=== PATIENT | female | born 1950 | race Caucasian/White ===

== ENCOUNTER 2020-01-21 14:20 | Outpatient (CLI) | payer MEDICARE, SELFPAY ==
--- NOTE | ~2020-01-21 | MM_ITS ---
EXAMINATION: MM screening mehreen BI w landon HISTORY: Screening mammogram TECHNIQUE: Craniocaudal and mediolateral oblique 3-D tomosynthesis images were obtained and synthetic 2-D images were generated. CAD analysis was submitted and interpreted. COMPARISON: 12/26/2018, 08/21/2017, 04/08/2015 bilateral digital screening mammogram examinations BREAST PARENCHYMAL COMPOSITION: There are scattered areas of fibroglandular density. FINDINGS: Focal asymmetry is noted in the outer right breast on CC projection. Diagnostic right mammo gram is recommended, with ultrasound if required. Otherwise there is no evidence of suspicious mass, calcification, or architectural distortion to sugg est malignancy in either breast. There has been no suspicious interval change. IMPRESSION: 1. Focal asymmetry in the outer right breast on craniocaudal view 2. Diagnostic right mammogram is recommended, with ultrasound if required BI-RADS Category 0: Incomplete: Needs additional imaging evaluation. Reviewed, dictated and finalized at location A.
== END 2020-01-21 14:21 | disposition home or self-care (01) ==
LOC: ANHIMG 14:28
PROVIDERS: PCP Internal Medicine; Visit Provider Internal Medicine
DX: Z12.31 Encounter for screening mammogram for malignant neoplasm of breast (principal); R92.8 Other abnormal and inconclusive findings on diagnostic imaging of breast
CPT/HCPCS: 77063; 77067

== ENCOUNTER 2020-03-02 12:09 | Outpatient (CLI) | payer MEDICARE, SELFPAY ==
--- NOTE | ~2020-03-02 | MMUS_ITS ---
EXAMINATION: MM diagnostic mammo unilat RT, US breast RT limited HISTORY: Follow-up right breast asymmetry TECHNIQUE: Additional 3-D tomosynthesis images of the right breast were performed and synthetic 2-D i mages were generated. CAD analysis was submitted and interpreted. High resolution right breast ultras ound was performed. COMPARISON: Comparison to multiple prior studies sequentially, with oldest reviewed study dated 08/21. BREAST PARENCHYMAL COMPOSITION: Breast composed of scattered areas of fibroglandular density. FINDINGS: MAMMOGRAPHIC FINDINGS: There are no suspicious masses, calcifications or architectural distortion in the right breast to sug gest malignancy. ULTRASOUND: Right breast ultrasound: Mildly prominent ducts. No suspicious masses or fluid collections are identified. IMPRESSION: 1. No evidence for malignancy in the right breast. 2. Routine yearly screening mammogram and regular clinical breast examination are recommended. BI-RADS Category 1: Negative Reviewed, dictated and finalized at location A. AND [employer] WORKER IMPRESSION: 1. No evidence for malignancy in the right breast. 2. Routine yearly screening mammogram and regular clinical breast examination a re recommended. BI-RADS Category 1: Negative
== END 2020-03-02 12:10 | disposition home or self-care (01) ==
LOC: ANHIMG 12:18
PROVIDERS: PCP Internal Medicine; Visit Provider Internal Medicine
DX: R92.8 Other abnormal and inconclusive findings on diagnostic imaging of breast (principal)
CPT/HCPCS: 76642; 77065

== ENCOUNTER → 2020-09-14 01:07 | Outpatient (CLI) | payer MEDICARE, SELFPAY ==
[2020-09-14 18:48] LABS: SARS-CoV-2 RNA PCR Negative
== END ==
PROVIDERS: PCP Internal Medicine; Visit Provider Internal Medicine Gastroenterology
DX: Z01.812 Encounter for preprocedural laboratory examination (principal); Z20.822 Contact with and (suspected) exposure to COVID-19
CPT/HCPCS: C9803; U0003; U0005

== ENCOUNTER 2020-09-17 01:55 | Day surgery (SDC) | payer MEDICARE, SELFPAY ==
[2020-09-08 13:56] VITALS: BMI 32.9
[2020-09-17 09:07] VITALS: BP 136/76; PULSE 72; RESP 18; TEMP 36.6; O2SAT 98; BMI 32.8
[2020-09-17] MEDS: LACTATED RINGERS 1,000 ML 150 ML IV CONT (09:17)
--- NOTE | 2020-09-17 09:44 | WPDGICN ---
GI Consult Note Consult date/time: 09/17/20 09:44 HPI: Reason for visit is colonoscopy. This very pleasant lady seen in consultation at the request of the primary physician. Impression: Screening and surveillance colonoscopy. The patient has a history adenomatous colon polyps. HTN. COPD. Tobacco abuse. Recommendation: Colonoscopy. History: This very pleasant lady has a negative GI review systems. She is here for screening and surveillance colonoscopy. She has a history adenomatous colon polyps. Recently the patient did have a virus with nausea, vomiting diarrhea. This was self-limited. The patient does have a history of COPD. She has occasional shortness of breath, dyspnea exertion and wheezing. Physical examination: General: very pleasant patient in no acute distress. HEENT: Head was normocephalic sclerae is clear mouth without masses neck was supple. Heart: Rate rhythm regular without S3 or S4. Lungs: Decreased breath sounds bilaterally with expiratory wheezes. Abdomen: Soft with no guarding or rigidity. Bowel sounds were active. Neurologic: Cranial nerves 2 through 12 intact. No focal defects. No clonus. Musculoskeletal system: Revealed no joint tenderness or swelling no muscle atrophy. Extremities: Reveal no significant edema. Skin: Warm and dry with normal turgor. Mental status: intact. Patient is alert and oriented. Review of Systems Review of Systems: All systems reviewed & are unremarkable except as noted in HPI and below PMFSH Past Medical History Medical History (Updated 09/17/20 @ 09:43 by Addy Cervantes DO) Adenomatous colon polyp COPD (chronic obstructive pulmonary disease) HTN (hypertension) Tobacco abuse Surgical History Surgical History (Updated 09/17/20 @ 09:36 by Addy Cervantes DO) H/O colonoscopy Social History Social History Smoking packs per day: 0.5 Smoking cigarettes per day: 10.0 Smoking status: Current every day smoker Tobacco type: cigarettes Alcohol use details: SOCIALLY Living arrangements: with friend(s) Spiritual care concerns: No Meds Home Medications and Allergies Home Medications Medication Instructions Recorded Confirmed Type albuterol 90 mcg INHALATION Q4-6H PRN 09/08/20 09/08/20 History amlodipine 5 mg PO DAILY 09/08/20 09/08/20 History budesonide-formoterol [Symbicort] 2 puff INHALATION BID 09/08/20 09/08/20 History cetirizine 10 mg PO DAILY PRN 09/08/20 09/08/20 History Allergies Allergy/AdvReac Type Severity Reaction Status Date / Time No Known Allergies Allergy Verified 09/17/20 09:07 Vital Signs Vital Signs - 24 hr 09/17/20 09:07 Temperature 36.6 C Pulse Rate 72 Respiratory Rate 18 Blood Pressure 136/76 Pulse Oximetry 98
--- NOTE | 2020-09-17 10:34 | WPDANESEPPF ---
Anes - Initial Pre Proc Eval Procedure: Operation Date: 09/17/20 10:00 Proposed Procedures p Screening Colonoscopy - Addy Cervantes DO Date/Time: 09/17/20 10:34 Surgeon: Addy Cervantes DO Pre Op Diagnosis: neoplasm screening, hx colon polyps Patient Data Age: 70 Gender: F Height: 5 ft 4 in Weight: 86.8 kg Last Vital Signs Temp 97.8 F 09/17/20 09:07 Pulse 72 09/17/20 09:07 Resp 18 09/17/20 09:07 BP 136/76 09/17/20 09:07 Pulse Ox 98 09/17/20 09:07 Allergies Allergy/AdvReac Type Severity Reaction Status Date / Time No Known Allergies Allergy Verified 09/17/20 09:07 Home Medications Medication Instructions Recorded Confirmed Type albuterol 90 mcg INHALATION Q4-6H PRN 09/08/20 09/08/20 History amlodipine 5 mg PO DAILY 09/08/20 09/08/20 History budesonide-formoterol [Symbicort] 2 puff INHALATION BID 09/08/20 09/08/20 History cetirizine 10 mg PO DAILY PRN 09/08/20 09/08/20 History Patient hx anesthesia problems: none Family hx anesthesia problems: none [facility] Past Medical History Medical History (Updated 09/17/20 @ 09:43 by Addy Cervantes DO) Adenomatous colon polyp COPD (chronic obstructive pulmonary disease) HTN (hypertension) Tobacco abuse Surgical History Surgical History (Updated 09/17/20 @ 09:36 by Addy Cervantes DO) H/O colonoscopy Social History Social History Smoking packs per day: 0.5 Smoking cigarettes per day: 10.0 Smoking status: Current every day smoker Tobacco type: cigarettes Alcohol use details: SOCIALLY Living arrangements: with friend(s) Spiritual care concerns: No Anes - Eval Final PreProcedure Day of Procedure 09/17/20 10:34 Patient weight: obese Heart: regular rate and rhythm Lungs: clear to auscultation Airway: Mallampati scale class II Neurological: alert and oriented Last oral intake: >/= 8 hours ASA classification: III Emergent: no Anesthetic plan: proceed Anesthesia type and monitoring: general GIVS and standard monitoring Informed Consent: The patient's anesthetic plan and its attendant risks and benefits were discussed with the patient/family/POA. Questions were solicited and answers provided to the satisfaction of the patient/family/POA.
[2020-09-17 11:38] VITALS: BP 116/44; PULSE 73; RESP 20; O2SAT 96
[2020-09-17 11:48] VITALS: BP 147/92; PULSE 73; RESP 19; O2SAT 97
[2020-09-17 11:58] VITALS: BP 130/80; PULSE 76; RESP 19; O2SAT 98
== END 2020-09-17 12:20 | disposition home or self-care (01) ==
PROVIDERS: PCP Internal Medicine; Visit Provider Internal Medicine Gastroenterology
PROC: 0DJD8ZZ Inspection of Lower Intestinal Tract, Via Natural or Artificial Opening Endoscopic (ICD-10-PCS; CPT 45378; principal; 2020-09-17 10:00)
DX: Z12.11 Encounter for screening for malignant neoplasm of colon (principal); K57.30 Diverticulosis of large intestine without perforation or abscess without bleeding; K64.8 Other hemorrhoids; Z86.010 Personal history of colon polyps; I10 Essential (primary) hypertension; J44.9 Chronic obstructive pulmonary disease, unspecified; F17.210 Nicotine dependence, cigarettes, uncomplicated; Z79.51 Long term (current) use of inhaled steroids; E66.9 Obesity, unspecified; Z68.32 Body mass index [BMI] 32.0-32.9, adult
CPT/HCPCS: G0105; C9803; J2704; J7120; U0003; U0005

== ENCOUNTER 2020-09-28 18:22 | Emergency (ER) | payer MEDICARE, SELFPAY ==
--- NOTE | ~2020-09-28 | XR_ITS ---
XR wrist RT 2V 09/28/2020 20:42 Indication: Post reduction film of the right wrist Procedure: 2 views right wrist Comparison: 09/28/2020 Findings: There is a transverse distal radial metaphyseal fracture in anatomic alignment post reducti on. There is an ulnar styloid avulsion fracture. Moderate soft tissue swelling. Polyarticular osteoar thritis. Osteopenia. Impression: 1: Anatomic alignment of distal radial metaphyseal fracture post reduction. 2: Ulnar styloid avulsion fracture. Reviewed, dictated and finalized at location A. Impression: 1: Anatomic alignment of distal radial metaphyseal fracture post reduction. 2: Ulnar styloid avulsion fracture.
--- NOTE | ~2020-09-28 | XR_ITS ---
XR wrist RT 2V 09/28/2020 18:49 Indication: Right wrist pain Procedure: 2 views right wrist Comparison: No prior studies for comparison. Findings: There is a distal radial metaphyseal fracture with approximately one bone width ventral dis placement and 30 degrees volar angulation. There is a displaced ulnar styloid fracture. There is a la rge amount of soft tissue swelling. Generalized osteopenia. There is polyarticular osteoarthritis. No foreign bodies. Impression: 1: Displaced, angulated distal radial metaphyseal fracture. 2: Displaced ulnar styloid fracture Reviewed, dictated and finalized at location A. Impression: 1: Displaced, angulated distal radial metaphyseal fracture. 2: Displaced ulnar styloid fracture
[2020-09-28 18:37] VITALS: BP 168/87; PULSE 100; RESP 18; TEMP 36.9; O2SAT 96
[2020-09-28] MEDS: HYDROmorphone HCL INJ (*CRX) 1 MG/ML SYR IV PUSH (20:30)
--- NOTE | 2020-09-28 20:47 | ED.UPPEXIN ---
HPI - Extremity Injury (Upper) General Chief Complaint: Extremity Injury, Upper Stated Complaint: FALL, WRIST INJURY Time Seen by Provider: 09/28/20 19:26 History of Present Illness HPI narrative: Patient is a 70-year-old female who presents ER with right wrist injury. She was riding her horse when during a turn she fell off onto outstretched hand. It was her right arm. She had sudden onset pain and deformity. She was splinted with a magazine and then rode her horse 4 miles back to her car and drove to the hospital. She did not strike her head or lose consciousness. She has no numbness or tingling in her extremity. Related Data Home Medications Medication Instructions Recorded Confirmed albuterol 90 mcg INHALATION Q4-6H PRN 09/08/20 09/08/20 amlodipine 5 mg PO DAILY 09/08/20 09/08/20 budesonide-formoterol [Symbicort] 2 puff INHALATION BID 09/08/20 09/08/20 cetirizine 10 mg PO DAILY PRN 09/08/20 09/08/20 Allergies Allergy/AdvReac Type Severity Reaction Status Date / Time No Known Allergies Allergy Verified 09/28/20 20:57 Review of Systems Review of Systems: All systems reviewed & are unremarkable except as noted in HPI and below Cardiovascular: Cardiovascular: Denies chest pain and Denies radiating jaw, neck or arm pain Respiratory: Respiratory: Denies cough and Denies dyspnea Gastrointestinal: Gastrointestinal: Denies abdominal pain, Denies nausea and Denies vomiting Musculoskeletal: Musculoskeletal: Reports arthralgias and Reports joint swelling PMFSH Past Medical History Medical History (Updated 09/28/20 @ 21:15 by Robert Burnett MD) Adenomatous colon polyp COPD (chronic obstructive pulmonary disease) HTN (hypertension) Tobacco abuse Surgical History Surgical History (Updated 09/17/20 @ 09:36 by Addy Cervantes DO) H/O colonoscopy Social History Social History Smoking packs per day: 0.5 Smoking cigarettes per day: 10.0 Smoking status: Current every day smoker Tobacco type: cigarettes Gender identity (if verbalized by the patient): Female Spiritual care concerns: No Exam Narrative: Exam Narrative: GENERAL: Well-appearing, well-nourished, and in no acute distress. HEAD: Normocephalic, atraumatic. CHEST: Clear to auscultation. No respiratory distress. HEART: Regular rate and rhythm. Normal peripheral pulses. ABDOMEN: Soft, nontender, nondistended. EXTREMITIES: Focused exam of the right upper extremity reveals deformity at the wrist. Normal range of motion with brisk capillary refill normal normal sensation distal to the injury. No tenderness at the elbow and has full range of motion. No other extremity injury in the left upper or bilateral lower extremities. SKIN: Warm, dry, no rash. Abrasion on the dorsal aspect of the distal forearm. This is not an open fracture. NEURO: Alert and oriented x3. PSYCH: Normal mood and affect. Course Course Emergency Course: Forearm cleaned. Topical antibiotic applied. Wrist reduced. Discussed with orthopedic surgery who will follow patient up this week in clinic. Patient was placed in a sling. Vital Signs Vital signs: Vital Signs Temperature 98.4 F 09/28/20 18:37 Pulse Rate 100 09/28/20 18:37 Respiratory Rate 18 09/28/20 18:37 Blood Pressure 168/87 H 09/28/20 18:37 Pulse Oximetry 96 09/28/20 18:37 Temperature 98.4 F 09/28/20 18:37 Pulse Rate 100 09/28/20 18:37 Respiratory Rate 18 09/28/20 18:37 Blood Pressure 168/87 H 09/28/20 18:37 Pulse Oximetry 96 09/28/20 18:37 Procedures Orthopedic Fracture Reduction Fracture #1: Fracture Reduction date: 09/28/20 Fracture Reduction time: 20:35 Time Out Performed: Yes Side: right Fracture Reduction Location: radius Analgesia: other (dilaudid 1mg iv) Pre-Procedure Neuro Vascular Exam: normal Technique: direct manipulation Post Reduction X-rays Demonstrate: anatomical reduction Post-reduction neuro exam: i
[2020-09-28] MEDS: TETANUS,DIPHTHERIA,AC PERTUSSIS ADULT (0.5 ML) BOOSTRIX IM (21:31)
== END 2020-09-28 21:44 | disposition home or self-care (01) ==
PROVIDERS: Emergency Provider Emergency Medicine; PCP Internal Medicine
DX: S59.291A Other physeal fracture of lower end of radius, right arm, initial encounter for closed fracture (principal); S52.611A Displaced fracture of right ulna styloid process, initial encounter for closed fracture; Z23 Encounter for immunization; J44.9 Chronic obstructive pulmonary disease, unspecified; I10 Essential (primary) hypertension; Z86.010 Personal history of colon polyps; F17.210 Nicotine dependence, cigarettes, uncomplicated; V80.010A Animal-rider injured by fall from or being thrown from horse in noncollision accident, initial encounter
CPT/HCPCS: 25605; 73100; 90471; 90714; 90715; 96374; 99285; A4565; J1170

== ENCOUNTER → 2020-10-06 10:14 | Outpatient (CLI) | payer MEDICARE, SELFPAY ==
[2020-10-08 00:05] LABS: SARS-CoV-2 RNA PCR Negative
== END ==
PROVIDERS: PCP Internal Medicine; Visit Provider Orthopaedic Surgery
DX: Z01.812 Encounter for preprocedural laboratory examination (principal); Z20.822 Contact with and (suspected) exposure to COVID-19
CPT/HCPCS: C9803; U0003; U0005

== ENCOUNTER 2020-10-07 08:27 | Outpatient (CLI) | payer MEDICARE, SELFPAY ==
--- NOTE | 2020-10-07 08:41 | ECG_ITS ---
Measurements Intervals [place] Rate: 78 P: 78 MN: 152 QRS: 31 QRSD: 91 T: 53 QT: 345 QTc: 394 Interpretive Statements SINUS RHYTHM DELAYED PRECORDIAL R/S TRANSITION BASELINE ARTIFACT- III, AVR, AVL, AVF BORDERLINE ECG Electronically Signed On 10-07-2020 9:11:53 CDT by Singh Cueva D.O.
== END 2020-10-07 08:28 | disposition home or self-care (01) ==
PROVIDERS: PCP Internal Medicine; Visit Provider Orthopaedic Surgery
DX: I10 Essential (primary) hypertension (principal); Z01.818 Encounter for other preprocedural examination; R94.31 Abnormal electrocardiogram [ECG] [EKG]
CPT/HCPCS: 93005

== ENCOUNTER 2020-10-08 02:53 | Day surgery (SDC) | payer MEDICARE, SELFPAY ==
[2020-10-06 15:02] VITALS: BMI 32.7
--- NOTE | 2020-10-07 09:23 | WPDANESEPPF ---
Anes - Initial Pre Proc Eval Procedure: Operation Date: 10/08/20 12:30 Proposed Procedures p Open Reduction Internal Fixation Right Distal Radius Fracture - Micha Mejia MD Date/Time: 10/07/20 09:23 Surgeon: Micha Mejia MD Pre Op Diagnosis: right distal radius fracture Patient Data Age: 70 Gender: F Height: 1.63 m Weight: 86.4 kg Allergies Allergy/AdvReac Type Severity Reaction Status Date / Time No Known Allergies Allergy Verified 10/06/20 15:01 Home Medications Medication Instructions Recorded Confirmed Type albuterol 90 mcg INHALATION Q4-6H PRN 09/08/20 10/06/20 History amlodipine 5 mg PO DAILY 09/08/20 10/06/20 History budesonide-formoterol [Symbicort] 2 puff INHALATION BID 09/08/20 10/06/20 History hydrocodone-acetaminophen 1 tablet PO Q6H PRN #20 tablet 09/28/20 10/06/20 Rx tramadol 50 mg tablet 50 mg PO Q6H PRN 10/06/20 10/06/20 History ECG: Date of Service: 10/07/20 Procedure(s): CA 12 lead EKG Accession Number(s): [id number] cc: ~ Measurements Intervals [place] Rate: 78 P: 78 TN: 152 QRS: 31 QRSD: 91 T: 53 QT: 345 QTc: 394 Interpretive Statements SINUS RHYTHM DELAYED PRECORDIAL R/S TRANSITION BASELINE ARTIFACT- III, AVR, AVL, AVF BORDERLINE ECG Electronically Signed On 10-07-2020 9:11:53 CDT by Singh Cueva D.O. Patient hx anesthesia problems: none Family hx anesthesia problems: none [facility] Past Medical History Medical History (Updated 10/07/20 @ 09:24 by Santana Peterson MD) Adenomatous colon polyp Asthma COPD (chronic obstructive pulmonary disease) HTN (hypertension) Tobacco abuse Surgical History Surgical History H/O colonoscopy History of ankle surgery 1999 Social History Social History Smoking packs per day: 0.5 Smoking cigarettes per day: 10.0 Smoking status: Current every day smoker Tobacco type: cigarettes Second hand tobacco smoke exposure: Yes Additional smoking assessment comments: STATES SMOKED OFF AND ON SINCE HIGH SCHOOL Alcohol intake: current Drinks per week: 2 Substance use: never Substance use type: does not use Living arrangements: with friend(s) Gender identity (if verbalized by the patient): Female Spiritual care concerns: No Anes - Eval Final PreProcedure Day of Procedure 10/07/20 09:23 Patient weight: obese Heart: regular rate and rhythm Lungs: clear to auscultation and normal air movement Airway: Mallampati scale class II Neurological: alert and oriented Last oral intake: >/= 8 hours ASA classification: III Emergent: no Anesthetic plan: proceed Anesthesia type and monitoring: general LMA Informed Consent: The patient's anesthetic plan and its attendant risks and benefits were discussed with the patient/family/POA. Questions were solicited and answers provided to the satisfaction of the patient/family/POA.
[2020-10-08] VITALS (8 sets, daily range): BP systolic 134–173; BP diastolic 61–97; PULSE 71–88; RESP 12–18; TEMP 36.5–36.7; O2SAT 97–99
--- NOTE | ~2020-10-08 | XR_ITS ---
EXAMINATION: XR surgery orthopedic EXAM DATE: 10/08/2020 14:27 INDICATION: Right wrist ORIF. TECHNIQUE: Fluoroscopy used during XR surgery orthopedic performed by Dr. Micha Mejia MD. Radi ologist was not present for the imaging or procedure. Total fluoroscopic time of 22 seconds. The DA P for this procedure was 0.01 mGym2. A total of 3 images sent to PACS from the exam. FINDINGS: Frontal and lateral images demonstrate open reduction internal fixation of the comminuted right radial distal metaphyseal intra-articular fracture, with orthopedic plate, supporting screws. T here is been reduction in previously seen ulnar styloid base avulsion fracture.. Correlate with proc edure note. IMPRESSION: Fluoroscopy used during right distal radial ORIF. Reviewed, dictated and finalized at location A.
[2020-10-08] MEDS: ACETAMINOPHEN 500 MG TABLET 1000 MG PO (11:04)
[2020-10-08] MEDS: KETOROLAC 15 MG/ML VIAL (*BKC) IV PUSH (11:07)
[2020-10-08] MEDS: LACTATED RINGERS 1,000 ML 30 ML IV CONT (11:08)
--- NOTE | 2020-10-08 11:55 | WPDANESPNB ---
Anes - Peripheral Nerve Block Date/Time: 10/08/20 11:55 I have discussed with the patient/family/POA the placement of a peripheral nerve block for post-operative pain management, including associated risks, benefits, complications, and side effects. Alternative methods of post-operative analgesia were detailed. Questions were solicited and answers provided to the satisfaction of the patient/family/POA. Time-Out: A pre-procedural Time-Out was completed immediately before starting the procedure and confirmed: Patient Identification, Site, Procedure, Patient Position and the Availability of Requisite Equipment. Clinical Indications: Acute post-operative pain management requested by the operative surgeon. Nerve Block Insertion Note Needle: 22 gauge, stimulating, insulated echogenic needle.
--- NOTE | 2020-10-08 12:04 | WPDHPUPDATE1 ---
History and Physical Update Update Date/Time: 10/08/20 12:04 History and Physical has been reviewed, including an updated exam of the patient. There are NO changes in the patient's condition. Risks, benefits, and alternatives have been discussed and questions answered. Patient agrees to proceed with procedure.
--- NOTE | 2020-10-08 12:51 | SUR.PREOP ---
1200: PT MADE AWARE THAT SURGERY WILL BE DELAYED UNTIL 1300 R/T PREV CASE DELAYS. PT VOICES UNDERSTANDING. DENIES NEEDS.
--- NOTE | 2020-10-08 13:11 | WPDHPUPDATE1 ---
History and Physical Update Update Date/Time: 10/08/20 13:11 History and Physical has been reviewed, including an updated exam of the patient. There are NO changes in the patient's condition. Risks, benefits, and alternatives have been discussed and questions answered. Patient agrees to proceed with procedure.
[2020-10-08] MEDS: ceFAZolin 2 GM/D5W 50 ML 2 GM/50 ML BAG IVPB (13:17)
--- NOTE | 2020-10-08 14:48 | W.PM.PROC2 ---
Procedure Note - Detailed Date of Procedure 10/08/20 Pre-op Diagnosis right distal radius fracture Post-op Diagnosis same Procedure Performed ORIF right distal radius fracture Surgeon Micha Mejia MD Charter Representative [place] Anesthesia general Indications See H&P Description of Procedure The patient was identified and the proper side identified. She was taken back to the operating room, transferred to the or table positioning supine taking care to pad her torso and extremities. After general anesthetic induction and intubation, a nonsterile tourniquet was placed high on the right arm which was prepped and draped in the usual sterile fashion. The extremity was exsanguinated and tourniquet inflated to 250 mmHg remaining up for approximately 46 minutes. A volar longitudinal incision was made along the FCR tendon distally. The subcutaneous tissue was sharply dissected protecting neurovascular structures. The FCR tendon was released from its sheath and retracted ulnarly. This allowed for the deep fascia of the forearm to be divided longitudinally in line with the incision. Care was taken to protect the volar compartment structures as well as the radial nerve and radial vascular structures. The pronator quadratus was elevated off of the distal radius allowing for inspection of the fracture site. The fracture fragments were disimpacted and able to be realigned virtually anatomically with fluoroscopic assistance. They were secured in this position with a narrow, short from the DVR set. The plate was applied with fluoroscopic visualization to avoid penetration of the joint and to ensure optimal hardware placement. Once the plate was secure the overall construct was assessed fluoroscopically on the AP and lateral views. The virtually anatomic reduction was held very nicely. The construct was stable. The wound was irrigated with a copious amount of sterile antibiotic solution. Skin edges were reapproximated with two 0 strata fix and tissue adhesive for the skin. The abraded area which had been dressed prior to prepping with an site, was dressed with Adaptic and gauze. Sterile dressing was applied to the forearm, wrist and hand. Tourniquet was released. A well-padded short-arm volar wrist splint was fashioned. The procedure was well tolerated. There were no known intraoperative complications. Estimated blood loss was negligible. Estimated Blood Loss -5.0 Tourniquet Time 46 Drains No Packing No Pathology none sent Complications No immediate complications Condition stable Disposition PACU
[2020-10-08] MEDS: oxyCODONE HCL (*CRX) 5 MG TAB IR PO (15:52)
== END 2020-10-08 16:43 | disposition home or self-care (01) ==
PROVIDERS: PCP Internal Medicine; Visit Provider Orthopaedic Surgery
PROC: (CPT 25575; principal; 2020-10-08 12:30)
DX: S52.571A Other intraarticular fracture of lower end of right radius, initial encounter for closed fracture (principal); V80.010A Animal-rider injured by fall from or being thrown from horse in noncollision accident, initial encounter; I10 Essential (primary) hypertension; J44.9 Chronic obstructive pulmonary disease, unspecified; F17.210 Nicotine dependence, cigarettes, uncomplicated; Z79.51 Long term (current) use of inhaled steroids; E66.9 Obesity, unspecified; Z68.33 Body mass index [BMI] 33.0-33.9, adult
CPT/HCPCS: 25608; 93005; A9270; C1713; C9803; J0690; J1100; J1885; J2370; J2405; J2704; J3010; J7120; U0003; U0005

== ENCOUNTER 2020-12-24 09:00 | Outpatient (RCR) | payer MEDICARE, SELFPAY ==
--- NOTE | 2020-11-19 16:08 | OTOPEVAL ---
OCCUPATIONAL THERAPY INITIAL EVALUATION: 11/19/2020 Thank you for referring Hailey Tompkins to [facility].? The patient is scheduled to be seen for therapy? 2x/week for 4 weeks. Please review, sign, date and return this plan of care BERNICE. I agree with and certify that the following plan of care is medically necessary. Referring Physician Date Attending Provider: Micha Mejia MD *OT Outpatient Evaluation Start: 11/19/20 14:04 Freq: Status: Active Protocol: Document 11/19/20 14:43 KJL (Rec: 11/19/20 16:08 KJL [id number]) Therapy Assessment Status Assessment Status Assessment Status Evaluation Evaluation Information Problem Diagnosis R UE distal radius fracture with ORIF Onset September 28, 2020 Additional Evaluation Detail Patient had a fall off her house resulting in a R UE distal radius fracture on September 28, 2020. Patient then underwent a ORIF on October 08, 2020 (6 weeks ago). Patient reports cast was removed on . Subjective Information Patient since breaking R Query Text:As Reported By Patient/ dominant wrist reports Family difficulty with all functional and daily tasks including hand writing, gripping, grasping items. Patient reports has compensated with utilizing L UE instead for daily tasks. Patient reports wants to get back to being able to cut veggies with R hand, ride horse including pulling on reigns, putting saddle on horse. Prior Level of Function Activity Level (Last 3 Months) Hand Dominance Right Activity of Daily Living Ability Independent Indoor/Home Mobility Independent Community Mobility Independent Stairs Ability Independent Functional Cognition (Planning, Shopping Independent , Taking Medications) Cooking Yes Cleaning Yes Laundry Yes Shopping Yes Driving Yes Home Setting Home Type House,Multiple Levels Environmental Barriers Stairs, Greater than 4 Living Situation With Friend Support Available Local Family Support,Neighbor/
--- NOTE | 2020-12-24 09:42 | OTOPEVAL ---
OCCUPATIONAL THERAPY RE-EVALUATION AND DISCHARGE REPORT 12/24/20 Patient presents today for OT re-evaluation after 4 weeks of therapy focusing on right elbow, forearm, wrist, and hand ROM and strengthening after she sustained a distal radius fracture and underwent an ORIF. She has made excellent progress with improved ROM and strength which has translated into improved use for ADLs, gardening, taking care of her animals, and riding horses. She is currently independent with HEP and ready for discharge. Thank you for referring Hailey Tompkins to [facility]. Please review, sign, date and return this D/C Report BERNICE. I agree with and certify that the following plan of care is medically necessary. Referring Physician Date Referring Provider: Micha Mejia MD *OT Outpatient Re-Evaluation Start: 11/19/20 14:04 Problem Diagnosis Right distal radius fracture with ORIF Onset September 28, 2020 Additional Evaluation Detail Patient had a fall off her house resulting in a right distal radius fracture. Patient then underwent a ORIF on October 08, 2020. This week is 11 weeks post op. Subjective Information Patient reports return to near Query Text:As Reported By Patient/ normal use of the right hand. Family She is now able to cut veggies, garden, ride horses, groom her animals, and lift a 1/2 full coffee pot. She states she continues to be guarded with lifting a full coffee pot due to weakness. She does report general muscle fatigue with prolonged use. Pain Assessment Timing of Pain Assessment Timing of Pain Assessment Assessment Pain Scale Pain Scale Used Numeric (1 - 10) Self Report Pain Assessment Right Wrist(s) Reported Pain Level 0 Lowest Pain Intensity 0 Greatest Pain Intensity 4 Pain Aggravating Factors Exercise/Activity Pain Score Pain Score 0: Self Report Upper Extremity Range of Motion Elbow/Forearm Range of Motion Right Reason Not Measured WNL/Left Elbow Flexion - Active 135 Elbow Extension - Active 0 Forearm Supination - Active 65 Forearm Pronation - Active 75 Elbow/Forearm Range of Motion Pain Limitations Elbow/Forearm Range of Motion Comments ROM measurements from the initial evaluation on 7/22/21: - flexion 110* - extension -5* - supination 20* - pronati
== END 2020-12-24 10:50 | disposition home or self-care (01) ==
LOC: ANHOT 09:00
PROVIDERS: PCP Internal Medicine; Visit Provider Orthopaedic Surgery
DX: Z47.89 Encounter for other orthopedic aftercare (principal); S52.551D Other extraarticular fracture of lower end of right radius, subsequent encounter for closed fracture with routine healing
CPT/HCPCS: 97018; 97110; 97140; 97165

== ENCOUNTER 2021-04-15 08:29 | Outpatient (CLI) | payer MEDICARE, SELFPAY ==
--- NOTE | ~2021-04-15 | MM_ITS ---
EXAMINATION: MM screening [facility] BI w [facility] HISTORY: Screening mammogram TECHNIQUE: Craniocaudal and mediolateral oblique 3-D tomosynthesis images were obtained and synthetic 2-D images were generated. CAD analysis was submitted and interpreted. COMPARISON: 03/02/2020 diagnostic right mammogram and limited right breast ultrasound 01/21/2020, 12/26/2018 bilateral screening mammogram examinations BREAST PARENCHYMAL COMPOSITION: There are scattered areas of fibroglandular density. FINDINGS: There is no evidence of suspicious mass, calcification, or architectural distortion to sugg est malignancy in either breast. There has been no suspicious interval change. IMPRESSION: 1. No mammographic evidence of malignancy. 2. Recommend routine screening mammography in one year. BI-RADS Category 1: Negative Reviewed, dictated and finalized at location A. PHYSICIAN ASST
== END 2021-04-15 08:30 | disposition home or self-care (01) ==
LOC: ANHIMG 08:31
PROVIDERS: PCP Internal Medicine; Visit Provider Internal Medicine
DX: Z12.31 Encounter for screening mammogram for malignant neoplasm of breast (principal)
CPT/HCPCS: 77063; 77067

== ENCOUNTER 2022-11-22 09:09 | Outpatient (CLI) | payer MEDICARE, SELFPAY ==
--- NOTE | ~2022-11-22 | CT_ITS ---
CT Scan of the Chest without Contrast: Clinical Indication: Lung cancer screening, personal history of nicotine dependence Technique: Contiguous sections were acquired throughout the chest without intravenous contrast. Dose reduction technique was used on this scan by utilizing automated exposure control and iterative recon struction technique. The dose-length product (DLP) was 100.25 mGy-cm. COMPARISON: 08/21/2017 Findings: There is no evidence of any significant mediastinal, hilar or axillary lymphadenopathy. The mediastin al soft tissues appear normal. There is no evidence of pleural or pericardial effusion. Calcified right lower lobe granuloma present. There is focal scarring or atelectasis at the lingula. Images through the upper abdomen reveal no abnormalities. Impression: Lung RADS 2: Benign appearance. 12 month follow-up screening CT advised. Reviewed, dictated and finalized at [facility]. Impression: Lung RADS 2: Benign appearance. 12 month follow-up screening CT advised.
== END 2022-11-22 09:10 | disposition home or self-care (01) ==
PROVIDERS: PCP Internal Medicine; Visit Provider Internal Medicine
DX: Z12.2 Encounter for screening for malignant neoplasm of respiratory organs (principal); Z87.891 Personal history of nicotine dependence
CPT/HCPCS: 71271

== ENCOUNTER 2022-11-25 12:33 | Outpatient (CLI) | payer MEDICARE, SELFPAY ==
--- NOTE | ~2022-11-25 | MM_ITS ---
EXAMINATION: MM screening [facility] BI w landon HISTORY: Screening mammogram TECHNIQUE: Craniocaudal and mediolateral oblique 3-D tomosynthesis images were obtained and synthetic 2-D images were generated. CAD analysis was submitted and interpreted. COMPARISON: 04/15/2021, 03/02/2020, 01/21/2020, 12/26/2018 BREAST PARENCHYMAL COMPOSITION: There are scattered areas of fibroglandular density. FINDINGS: No suspicious mass, calcification, or architectural distortion are identified in either felix ast to suggest malignancy. There has been no suspicious interval change. IMPRESSION: 1. No mammographic evidence of malignancy. 2. Recommend routine screening mammography in one year. BI-RADS Category 1: Negative Reviewed, dictated and finalized at location A.
== END 2022-11-25 12:34 | disposition home or self-care (01) ==
LOC: CHSIMG 12:35
PROVIDERS: PCP Internal Medicine; Visit Provider Internal Medicine
DX: Z12.31 Encounter for screening mammogram for malignant neoplasm of breast (principal)
CPT/HCPCS: 77063; 77067

== ENCOUNTER 2023-12-14 14:02 | Outpatient (CLI) | payer MEDICARE, SELFPAY ==
--- NOTE | ~2023-12-14 | DEXA_ITS ---
Bone Density Report Name: HERMELINDO LAYTON Age: 73 Sex: Female Ethnicity: White Date of : 1950 Indication: postmenopausal; screening for osteoporosis; history of glucocorticoids; prior fracture; asthma or emphysema; Referring Provider: LISSA, DAVE Study: Bone densitometry was performed. Exam Date: December 14, 2023 Accession number: [id number] Bone Density: Region BMD T-score Z-score Classification AP Spine(L1-L4) 0.917 -1.2 1.0 Osteopenia Femoral Neck (Left) 0.659 -1.7 0.2 Osteopenia Total Hip (Left) 0.848 -0.8 0.8 Normal Femoral Neck (Right) 0.637 -1.9 0.0 Osteopenia Total Hip (Right) 0.780 -1.3 0.3 Osteopenia Femoral Neck Mean 0.648 -1.8 0.1 Osteopenia Total Hip Mean 0.814 -1.0 0.6 Normal World Health Organization criteria for BMD impression classify patients as: Normal (T-score at or above -1.0), Osteopenia (T-score between -1.0 and -2.5), or Osteoporosis (T-score at or below -2.5). 10-year Fracture Risk(1): Major Osteoporotic Fracture 27% Hip Fracture 9.1% Reported Risk Factors: [place] (), Neck BMD=0.637, BMI=30.1, previous fracture, smoking, glucocorticoids (1) FRAX(R) Version 3.08. Fracture probability calculated for an untreated patient. Fracture probability may be lower if the patient has received treatment. Clinical Information Provided by Patient: Has had a low trauma fracture Smokes Has taken Glucocorticoids Has used the following medications: Fosamax (i.e. alendronate), Vitamin D, Calcium, MULTI Has the following medical conditions: Asthma or Emphysema Patient maximum height was 64 Menopause Age: 52 No regular weight bearing exercise Drinks caffeinated beverages Onset of menses at age 14 Number of children 2 Impression: The patient has low bone mass, based on the Right Femoral Neck T-score. The patient has risk factors, including: smoking, previous fracture, history of glucocorticoid therapy. Discussion: BONE DENSITY IS LOW AT ONE OR MORE SKELETAL SITES. This patient's lowest T-score is low at one or more skeletal sites. It meets the World Health Organization's (WHO) criteria for ?low bone mass? (T-score between -1.0 and -2.5). The patient's 10-year risk of fracture as calculated by FRAX is less than the threshold where pharmacological therapy is recommended by the National Osteoporosis Foundation (NOF). However, all treatment decisions require clinical judgment and consideration of individual patient factors, including patient preferences, comorbidities, previous drug use, risk factors not captured in the FRAX model (e.g., frailty, falls, vitamin D deficiency, increased bone turnover, interval significant decline in bone density) and possible under or overestimation of fracture risk by FRAX. The patient should follow a h
--- NOTE | ~2023-12-14 | MM_ITS ---
EXAMINATION: MM screening [facility] BI w landon HISTORY: Screening TECHNIQUE: Craniocaudal and mediolateral oblique 3-D tomosynthesis images were obtained and synthetic 2-D images were generated. CAD analysis was submitted and interpreted. COMPARISON: Comparison to multiple prior studies sequentially, with oldest reviewed study dated 08/21. BREAST PARENCHYMAL COMPOSITION: Not dense: There are scattered areas of fibroglandular density. FINDINGS: There is no evidence of suspicious mass, calcification, or architectural distortion to sugg est malignancy in either breast. There has been no suspicious interval change. IMPRESSION: 1. No mammographic evidence of malignancy. 2. Recommend routine screening mammography in one year. BI-RADS Category 1: Negative Reviewed, dictated and finalized at location B.
== END 2023-12-14 14:03 | disposition home or self-care (01) ==
LOC: CHSIMG 14:07
PROVIDERS: PCP Internal Medicine; Visit Provider Internal Medicine
DX: Z12.31 Encounter for screening mammogram for malignant neoplasm of breast (principal); Z78.0 Asymptomatic menopausal state; M85.89 Other specified disorders of bone density and structure, multiple sites
CPT/HCPCS: 77063; 77067; 77080

== ENCOUNTER 2024-07-22 08:32 | Outpatient (CLI) | payer MEDICARE, SELFPAY ==
--- NOTE | ~2024-07-22 | CT_ITS ---
EXAMINATION:CT lung screening DATE: 07/22/2024 09:53 INDICATION: Nicotine dependence. Current smoker with 25 pack year history. TECHNIQUE: Computed tomography (CT) of the chest was performed without intravenous contrast. Automate d exposure control and iterative reconstruction technique were employed. The dose-length product (DLP ) was 96.38 mGy-cm. COMPARISON: Chest CT 11/22/2022 FINDINGS: The lungs demonstrate mild atelectasis. A calcified right lung nodule and calcified right h ilar lymph nodes are consistent with old granulomatous disease. No pleural effusion. There is a trach eal diverticulum at the thoracic inlet. The heart size is normal. No pericardial effusion. There is s evere cervical spondylosis and moderate thoracic spondylosis. There is mild chronic height loss of mu ltiple vertebral bodies. IMPRESSION: 1. Lung-RADS category 1: Negative. Continue annual screening with noncontrast low-dose chest CT in 12 months. Reviewed, dictated and finalized at location A. IMPRESSION: 1. Lung-RADS category 1: Negative. Continue annual screening with noncontrast l ow-dose chest CT in 12 months.
--- NOTE | ~2024-07-22 | US_ITS ---
EXAMINATION: US carotid duplex BI DATE: 07/22/2024 10:22 INDICATION: Carotid bruit TECHNIQUE: Grayscale, color Doppler, and pulsed Doppler images of the cervical carotid arteries were obtained. The degree of vessel stenosis is placed in one of the following categories: normal, <50%, 5 0-69%, >=70% but less than near-occlusion, near-occlusion, or total occlusion. Note that percent sten osis relative to normal distal artery lumen diameter is indirectly measured from velocity measurement s as described by Alfredo, et al. Radiology 2003; 229:340-346. COMPARISON: None. FINDINGS: Incidentally noted 1.5 cm solid hypoechoic nodule at the inferior right thyroid (TI-RADS 3, mildly brooks spicious , FNA if >=2.5 cm, annual followup is >=1.5 cm) and 1.9 cm predominantly solid hypoechoic no dule in the inferior left thyroid (TI-RADS 4, moderately suspicious , FNA if >=1.5 cm, annual followu p is >=1 cm). RIGHT: The right common carotid artery (CCA) peak systolic velocity (PSV) is 82 cm/s. The right internal car otid artery (ICA) PSV is 82 cm/s. The right ICA end-diastolic velocity (EDV) is 29 cm/s. The right IC A/CCA PSV ratio is 1.0. Grayscale and color Doppler images yield an estimate of <50% diameter reducti on from plaque in the ICA. The external carotid artery (ECA) PSV is 90 cm/s. There is antegrade flow in the right vertebral artery. LEFT: The left CCA PSV is 90 cm/s. The left ICA PSV is 97 cm/s. The left ICA EDV is 22 cm/s. The left ICA/C CA PSV ratio is 1.1. Grayscale and color Doppler images yield an estimate of <50% diameter reduction from plaque in the ICA. The ECA PSV is 140 cm/s. There is antegrade flow in the left vertebral artery . IMPRESSION: 1. <50% stenosis in the right internal carotid artery. 2. <50% stenosis in the left internal carotid artery. Line 3. Bilateral bilateral thyroid nodules including a benign subcentimeter TI RADS 4 left thyroid nodule for which biopsy would be indicated. Consider dedicated thyroid ultrasound to assess for any additio nal more concerning nodules. Reviewed, dictated and finalized at location B. IMPRESSION: 1. <50% stenosis in the right internal carotid artery. 2. <50% stenosis in the left internal carotid artery. Line 3. Bilateral bilateral thyroid nodules including a benign subcentimeter TI RADS 4 left thyroid nodule for which biopsy would be indicated. Consider dedicated thyroid ultrasound to assess for any additional more concerning nodules.
--- OUTSIDE RECORDS SUMMARY | 2024-07-22 09:03 | XMS_ITS | Continuity of Care Document ---
Author Organization [facility] Address [address] [place] [address] Phone Care Team Providers Care Mechanical Door Repairer Name Role Phone Cecily Ellis Unavailable Unavailable Advance Directives Directive Yes / No Effective Date File Name No Information Encounters Encounter Description Practice Location Reason(s) For Visit Diagnoses Date Provider Providers Copied on Encounter [facility], [address], [place], [place], [id number], [place] tel:[phone] [facility] No Information Meño-0 [phone] [address] Rhonda Tony. [address] , [address], [place], [address], [place]. tel:[phone] Family History Family Member Type Diagnosis Age At Onset No Information Payers Payer name Insurance type Covered constitution party ID Authoriza tion(s) No Information Social History Type Description Quantity Date Captured Comments Sex Female Smoking Status No Information Chief Complaint And Reason For Visit No Information Reason For Referral Reason For Referral No Information History Of Present Illness Encounter Date Complaint History Of Prese nt Illness No Information Functional Status Date Functional Assessmen t No Information Instructions Date Instruction Additional Infor mation No Information Assessments Type Assessment Date No Information Patient Care Teams Name Effective Dates (start - stop) Status Members No Information
--- OUTSIDE RECORDS SUMMARY | 2024-07-22 09:03 | XMS_ITS | Clinical Summary ---
Author Organization [facility] Address [address] [address] Phone Care Team Providers Care Botany Technician Name Role Phone Addy Cervantes DO Unavailable [phone] Kathy Mendoza MD Primary Care Provider [phone] Allergies No known active allergies Medications polyethylene glycol (MIRALAX) Powder Mix the entire bottle with 64 oz of a clear liquid. Use as directed by the office for colonoscopy prep. 255 g 0 5 Active ALBUTEROL IN take by inhalation as needed. Active Multiple Vitamin (MULTI VITAMIN DAILY PO) Take by mouth as needed. Active Cholecalciferol (VITAMIN D PO) Take by mouth as needed. Active Immunizations Immunization Administration Dates Next Due Covid-19, Mrna, Lnp-s, PF, 1 00 mcg/0.5 mL Dose (Moderna) 07/06/2020,06/08/2020 Social History Tobacco Use Types Packs/Day Years Used Date Smoking Tobacco: Never Assessed Comments Unknown Sex and Gender Information Value Date Recorded Sex Assigned at Not on file Legal Sex Female 10:36 PM CDT Gender Identity Not on file Sexual Orientation Not on file Plan of Treatment Health Maintenance Due Date Last Done Comments DEXA Bone Density 1950 Hepatitis C Virus (HCV) Screening 1950 TdaP Immunization 1950 Cologuard 01/08/2002 Immunochemical Fecal Occult Blood 01/08/2002 Mammogram 01/08/2002 Zoster Immunization (2 of 3) 01/08/2013 11/13/2012 Influenza Immunization (#1) 12/31/202301/29, 02/19/2019, 02/06/2018, Additional history exists SARS-COV-2 Immunization ( season) 2023 09/24/2021, 03/03/2021, 07/06/2020, Additional history exists Colonoscopy 09/17/2025 09/17/2020, 06/04/2015 Colorectal Cancer Screening 09/17/2025 Respiratory Syncytial Virus (RSV) Immunization (Adult) (1 - 1-dose 75+ series) 01/08/2027 09/17/2020, 06/04/2015 Pneumococcal Immunization (50+ years) Completed 04/25/2018, 04/17/2017 Pneumococcal Immunization Combined Discontinued 04/25/2018, 04/17/2017 Hepatitis B Immunization Aged Out No longer eligible based on patient's age to complete this topic Meningococcal Immunization (ACWY) Aged Out No longer eligible based on patient's age to complete this topic Rotavirus Immunization Aged Out No lo nger eligible based on patient's age to complete this topic Procedures Procedure Name Priority Date/Time Associated Diagnosis Comments COLONOSCOPY Routine 09/17/2020 from Last 3 Months or Most Recently Relevant to Health Maintenance Results * COLONOSCOPY (09/17/2020) Addy Cervantes DO PROCEDURE/MINOR SURGICAL ORDERA BLES Final Result from Last 3 Months or Most Recently Relevant to Health Maintenance Insurance MEDICARE C [facility] Care Teams Botany Technician Relationship Specialty Start Date End Date Kathy Mendoza MD [address] [facility] [address] [place] [address] PCP - General Internal Medicine 09/23/20 Addy Cervantes DO Gastroenterology 06/04/15
--- OUTSIDE RECORDS SUMMARY | 2024-07-22 09:03 | XMS_ITS | Data Portability ---
Author Organization [facility] RIOSArturo Address [address] [facility] [address] [place] [address] Care Team Providers Care Religious Educator Name Role Phone KATHY ALCARAZ Primary Care Provider [phone] NOLAN TRONCOSO Director Of Archives Assessment No assessment recorded. Plan of Treatment Reminders Order Date Submit Date Provider Last Modified By Organization Details Last Modified Time Details Appointments NEW PATIENT 15 2024 01:45P Melani Liriano MD Not available Not available Not available ANY 15 2024 09:45A Melani MARKS [facility]- Not available Not available Not available Lab vitamin D, 25-hydrox y, total, serum 2023 024 [facility], [address] [place] [address], [place], [address], 07/13/2023 06:17:16 TSH, ultra-sen sitive, serum 2023 024 [facility], [address] [place] [address], [place], [address], 07/13/2023 06:17:14 HbA1c (hemoglob in A1c), blood 2023 024 [facility], [address] [place] [address] 2, [place], [address], 07/13/2023 06:17:14 CMP, serum or plasma 2023 024 [facility], [address] [place] [address] 2, [place], [address], 07/13/2023 06:17:13 CBC w/ auto diff 2023 024 [facility], [address] [facility] [address], [place], [address], 07/13/2023 06:17:15 lipid panel, serum 2023 024 [facility], [address] [facility] [address], [place], [address], 07/13/2023 06:17:12 Referral None recorded. Procedures None recorded. Surgeries None recorded. Imaging bone density 2023 024 [facility] ([facility]), [address] [place] [address] [address], [place], [address], 12/28/2023 10:10:16 Medication Orders alendrona te 10 mg tablet 2023 025 [id number], [address], [place], [place], [id number], 07/09/2024 11:09:18 prednison e 20 mg tablet 2023 024 [facility] #[id number], [address], [place], [place], [id number], 12/28/2023 10:20:03 Zithromax Z-Andres 250 mg tablet 2023 024 [facility] #[id number], [address], [place], [place], [id number], 12/28/2023 09:58:18 albuterol sulfate HFA 90 mcg/actua tion aerosol inhaler 2023 024 [facility] #[id number], [address], [place], [place], [id number], 10/02/2023 14:22:39 cetirizin e 10 mg tablet 2022 023 [facility] #[id number], [address], [place], [place], [id number], 07/09/2024 10:36:09 Patient TargetsNo targets recorded. Patient Instructions Encounter Date Encounter Id Patient Instructions Last Modified By Organization Details Last Modified Time 02/23/2023 [id number] A healthy lifestyle: care instructions nsuthan Not available 02/23/2023 10:04:07 Quitting Tobacco : Care Instructions nsuthan Not available 02/23/2023 10:05:33 f/u in 4month nsuthan Not available 10:03:34 06/27/2023 [id number] preventing osteoporosis: care instructions nsuthan Not available 06/27/2023 10:51:38 A healthy lifestyle: care instructions nsuthan Not available 06/27/2023 10:44:05 f/u in 6month nsuthan Not available 10:48:31 10/02/2023 [id number] Quitting Tobacco : Care Instructions nsuthan Not available 10/02/2023 14:21:56 12/28/2023 [id number] A healthy lifestyle: care instructions nsuthan Not available 12/28/2023 10:06:11 f/u in 6month nsuthan Not available 10:22:43 Reason for Referral None Reported. Results Created Date Observation Date Name Description Value Unit Range Abnormal Flag Note LastModifiedBy Organization Detail LastModifiedTime 07/12/1907/13/2023 LIPID PANEL cholesterol, total 184 mg/dL 100-19 9 Not Available [facility] [address] [facility], [place], [address], 07/13/2023 06:17:12 07/12/1907/13/2023 LIPID PANEL triglyceride s 62 mg/dL 0-149 Not Available [facility] [address] [facility], [place], [address], 07/13/2023 06:17:12 07/12/19 24 07/13/2023 LIPID PANEL HDL cholesterol 75 mg/dL >39 Not Available [facility] [address] [place], [address], 07/13/2023 06:17:12 07/12/19 24 07/13/2023 LIPID PANEL VLDL cholesterol janie 12 mg/dL 5-40 Not Available [facility] [address] [facility], [place], [address], 07/13/2023 06:17:12 07/12/19 24 07/13/2023 LIPID PANEL LDL chol calc ([facility]) 97 mg/dL 0-99 Not Available [facility] [address] [place], [address], 07/13/2023 06:17:12 07/12/19 24 07/13/2023 COMP. METAB OLIC PANEL (14) glucose 99 mg/dL 70-99 Not Available [facility] [address] [place], [address], 07/13/2023 06:17:13 07/12/19 24 07/13/2023 COMP. METAB OLIC PANEL (14) BUN 15 mg/dL 8-27 Not Available [facility] [address] [place], [address], 07/13/2023 06:17:13 07/12/19 24 07/13/2023 COMP. METAB OLIC PANEL (14) creatinine 0.81 mg/dL 0.57-1 .00 Not Available [facility] [address] [place], [address], 07/13/2023 06:17:13 07/12/19 24 07/13/2023 COMP. METAB OLIC PANEL (14) eGFR 78 mL/mi n/1.7 3 >59 Not Available [facility] [address] [place], [address], 07/13/2023 06:17:13 07/12/19 24 07/13/2023 COMP. METAB OLIC PANEL (14) BUN/creatini ne ratio 19 12-28 Not Available [facility] [address] [facility], [place], [address], 07/13/2023 06:17:13 07/12/19 24 07/13/2023 COMP. METAB OLIC PANEL (14) sodium 139 mmol/ L 134-14 4 Not Available [facility] [address] [facility], [place], [address], 07/13/2023 06:17:13 07/12/19 24 07/13/2023 COMP. METAB OLIC PANEL (14) potassium 4.7 mmol/ L 3.5-5. 2 Not Available [facility] [address] [facility], [place], [address], 07/13/2023 06:17:13 07/12/19 24 07/13/2023 COMP. METAB OLIC PANEL (14) chloride 103 mmol/ L 96-106 Not Available [facility] [address] [facility], [place], [address], 07/13/2023 06:17:13 07/12/19 24 07/13/2023 COMP. METAB OLIC PANEL (14) carbon dioxide, total 23 mmol/ L 20-29 Not Available [facility] [address] [facility], [place], [address], 07/13/2023 06:17:13 07/12/19 24 07/13/2023 COMP. METAB OLIC PANEL (14) calcium 9.9 mg/dL 8.7-10 .3 Not Available [facility] [address] [place], [address], 07/13/2023 06:17:13 07/12/19 24 07/13/2023 COMP. METAB OLIC PANEL (14) protein, total 6.6 g/dL 6.0-8. 5 Not Available [facility] [address] [facility], [place], [address], 07/13/2023 06:17:13 07/12/19 24 07/13/2023 COMP. METAB OLIC PANEL (14) albumin 4.3 g/dL 3.8-4. 8 Not Available [facility] [address] [facility], [place], [address], 07/13/2023 06:17:13 07/12/19 24 07/13/2023 COMP. METAB OLIC PANEL (14) globulin, total 2.3 g/dL 1.5-4. 5 Not Available [facility] [address] [facility], [place], [address], 07/13/2023 06:17:13 07/12/19 24 07/13/2023 COMP. METAB OLIC PANEL (14) A/G ratio 1.9 1.2-2. 2 Not Available [facility] [address] [place], [address], 07/13/2023 06:17:13 07/12/19 24 07/13/2023 COMP. METAB OLIC PANEL (14) bilirubin, total 0.5 mg/dL 0.0-1. 2 Not Available [facility] [address] [place], [address], 07/13/2023 06:17:13 07/12/19 24 07/13/2023 COMP. METAB OLIC PANEL (14) alkaline phosphatase 87 IU/L 44-121 Not Available [facility] [address] [facility], [place], [address], 07/13/2023 06:17:13 07/12/19 24 07/13/2023 COMP. METAB OLIC PANEL (14) AST (SGOT) 18 IU/L 0-40 Not Available [facility] [address] [facility] [place], [address], 07/13/2023 06:17:13 07/12/19 24 07/13/2023 COMP. METAB OLIC PANEL (14) ALT (SGPT) 14 IU/L 0-32 Not Available [facility] [address] [facility] [place], [address], 07/13/2023 06:17:13 07/12/19 24 07/13/2023 HEMOG LOBIN A1C hemoglobin A1C 6.3 % 4.8-5. 6 above high normal Predi abete s: 5.7 - 6.4 Diabe adam: >6.4 Glyce stephanie contr ol for adult s with diabe adam: <7.0 Not Available [facility]) [address] [facility] [place], [address], 07/13/2023 06:17:14 07/12/19 24 07/13/2023 TSH TSH 1.090 uIU/m L 0.450- 4.500 Not Available [facility] [address] [facility] [place], [address], 07/13/2023 06:17:14 07/12/19 24 07/13/2023 CBC WITH DIFFE RENTI AL/PL ATELE T WBC 6.1 x10e3 /uL 3.4-10 .8 Not Available [facility] [address] [facility] [place], [address], 07/13/2023 06:17:15 07/12/19 24 07/13/2023 CBC WITH DIFFE RENTI AL/PL ATELE T RBC 5.12 x10e6 /uL 3.77-5 .28 Not Available [facility] [address] [facility] [place], [address], 07/13/2023 06:17:15 03/13/20 24 07/13/2023 CBC WITH DIFFE RENTI AL/PL ATELE T hemoglobin 15.1 g/dL 11.1-1 5.9 Not Available [facility]) [address] [facility], [place], [address], 07/13/2023 06:17:15 07/12/19 24 07/13/2023 CBC WITH DIFFE RENTI AL/PL ATELE T hematocrit 45.9 % 34.0-4 6.6 Not Available [facility] [address] [facility], [place], [address], 07/13/2023 06:17:15 07/12/1907/13/2023 CBC WITH DIFFE RENTI AL/PL ATELE T MCV 90 fL 79-97 Not Available [facility] [address] [facility], [place], [address], 07/13/2023 06:17:15 07/12/1907/13/2023 CBC WITH DIFFE RENTI AL/PL ATELE T MCH 29.5 pg 26.6-3 3.0 Not Available [facility]) [address] [facility], [place], [address], 07/13/2023 06:17:15 07/12/1907/13/2023 CBC WITH DIFFE RENTI AL/PL ATELE T MCHC 32.9 g/dL 31.5-3 5.7 Not Available [facility]) [address] [facility], [place], [address], 07/13/2023 06:17:15 07/12/1907/13/2023 CBC WITH DIFFE RENTI AL/PL ATELE T RDW 13.2 % 11.7-1 5.4 Not Available [facility] [address] [place], [address], 07/13/2023 06:17:15 07/12/19 24 07/13/2023 CBC WITH DIFFE RENTI AL/PL ATELE T platelets 287 x10e3 /uL 150-45 0 Not Available [facility] [address] [facility], [place], [address], 07/13/2023 06:17:15 07/12/19 24 07/13/2023 CBC WITH DIFFE RENTI AL/PL ATELE T neutrophils 55 % notest ab. Not Available [facility] [address] [facility], [place], [address], 07/13/2023 06:17:15 07/12/19 24 07/13/2023 CBC WITH DIFFE RENTI AL/PL ATELE T lymphs 31 % notest ab. Not Available [facility] [address] [facility], [place], [address], 07/13/2023 06:17:15 07/12/19 24 07/13/2023 CBC WITH DIFFE RENTI AL/PL ATELE T monocytes 10 % notest ab. Not Available [facility] [address] [facility], [place], [address], 07/13/2023 06:17:15 07/12/19 24 07/13/2023 CBC WITH DIFFE RENTI AL/PL ATELE T eos 2 % notest ab. Not Available [facility] [address] [facility], [place], [address], 07/13/2023 06:17:15 07/12/19 24 07/13/2023 CBC WITH DIFFE RENTI AL/PL ATELE T basos 1 % notest ab. Not Available [facility] [address] [facility], [place], [address], 07/13/2023 06:17:15 07/12/19 24 07/13/2023 CBC WITH DIFFE RENTI AL/PL ATELE T neutrophils (absolute) 3.4 x10e3 /uL 1.4-7. 0 Not Available [facility] [address] [facility], [place], [address], 07/13/2023 06:17:15 07/12/19 24 07/13/2023 CBC WITH DIFFE RENTI AL/PL ATELE T lymphs (absolute) 1.9 x10e3 /uL 0.7-3. 1 Not Available [facility] [address] [facility], [place], [address], 07/13/2023 06:17:15 07/12/19 24 07/13/2023 CBC WITH DIFFE RENTI AL/PL ATELE T monocytes(ab solute) 0.6 x10e3 /uL 0.1-0. 9 Not Available [facility] [address] [facility], [place], [address], 07/13/2023 06:17:15 07/12/19 24 07/13/2023 CBC WITH DIFFE RENTI AL/PL ATELE T eos (absolute) 0.1 x10e3 /uL 0.0-0. 4 Not Available [facility] [address] [facility], [place], [address], 07/13/2023 06:17:15 07/12/19 24 07/13/2023 CBC WITH DIFFE RENTI AL/PL ATELE T baso (absolute) 0.1 x10e3 /uL 0.0-0. 2 Not Available [facility] [address] [facility], [place], [address], 07/13/2023 06:17:15 07/12/19 24 07/13/2023 CBC WITH DIFFE RENTI AL/PL ATELE T immature granulocytes 1 % notest ab. Not Available [facility] [address] [facility], [place], [address], 07/13/2023 06:17:15 07/12/19 24 07/13/2023 CBC WITH DIFFE RENTI AL/PL ATELE T immature grans (abs) 0.0 x10e3 /uL 0.0-0. 1 Not Available [facility] [address] [facility], [place], [address], 07/13/2023 06:17:15 07/12/19 24 07/13/2023 VITAM IN D, 25-HY DROXY vitamin D, 25-hydroxy 34.5 NG/mL 30.0-1 00.0 Vitam in D defic iency has been defin ed by the Insti tute of Medic ine and an Endoc rine Socie ty pract ice guide line as a level of serum 25-OH vitam in D less than 20 ng/mL (1,2) . The Endoc rine Socie ty went on to furth er defin e vitam in D insuf ficie ncy as a level betwe en 21 and 29 ng/mL (2). 1. IOM (Inst itute of Medic ine). 2009. Dieta ry refer ence intak es for calci um and D. Sweetie jacobo [place]: [facility] . 2. Milton wren MF, Guille sorto NC, Roger off-F reneear i MELO, et al. Evalu ation , treat ment, and preve ntion of vitam in D defic iency : an Endoc rine Socie ty clini janie pract ice guide line. JCEM. 2010; 96(7) :1911 -30. Not Available [facility] [address] [facility], [place], [address], 07/13/2023 06:17:16 07/10/19 25 07/10/2024 TSH+F REE T4 TSH 0.728 uIU/m L 0.450- 4.500 Not Available [facility] [address] [facility], [place], [address], 07/10/2024 08:25:51 07/10/19 25 07/10/2024 TSH+F REE T4 T4,free(dire ct) 1.13 NG/dL 0.82-1 .77 Not Available [facility] [address] [place], [address], 07/10/2024 08:25:51 07/10/19 25 07/10/2024 LIPID PANEL cholesterol, total 175 mg/dL 100-19 9 Not Available [facility] [address] [place], [address], 07/10/2024 08:25:53 07/10/19 25 07/10/2024 LIPID PANEL triglyceride s 89 mg/dL 0-149 Not Available [facility] [address] [place], [address], 07/10/2024 08:25:53 07/10/19 25 07/10/2024 LIPID PANEL HDL cholesterol 75 mg/dL >39 Not Available [facility] [address] [place], [address], 07/10/2024 08:25:53 07/10/19 25 07/10/2024 LIPID PANEL VLDL cholesterol janie 16 mg/dL 5-40 Not Available [facility] [address] [place], [address], 07/10/2024 08:25:53 07/10/19 25 07/10/2024 LIPID PANEL LDL chol calc ([facility]) 84 mg/dL 0-99 Not Available [facility] [address] [place], [address], 07/10/2024 08:25:53 07/10/19 25 07/10/2024 COMP. METAB OLIC PANEL (14) glucose 98 mg/dL 70-99 Not Available [facility] [address] [place], [address], 07/10/2024 08:25:54 07/10/19 25 07/10/2024 COMP. METAB OLIC PANEL (14) BUN 18 mg/dL 8-27 Not Available [facility] [address] [facility] [place], [address], 07/10/2024 08:25:54 07/10/19 25 07/10/2024 COMP. METAB OLIC PANEL (14) creatinine 0.66 mg/dL 0.57-1 .00 Not Available [facility] [address] [facility] [place], [address], 07/10/2024 08:25:54 07/10/19 25 07/10/2024 COMP. METAB OLIC PANEL (14) eGFR 93 mL/mi n/1.7 3 >59 Not Available [facility] [address] [facility], [place], [address], 07/10/2024 08:25:54 07/10/19 25 07/10/2024 COMP. METAB OLIC PANEL (14) BUN/creatini ne ratio 27 12-28 Not Available [facility] [address] [facility] [place], [address], 07/10/2024 08:25:54 07/10/19 25 07/10/2024 COMP. METAB OLIC PANEL (14) sodium 140 mmol/ L 134-14 4 Not Available [facility] [address] [place], [address], 07/10/2024 08:25:54 07/10/19 25 07/10/2024 COMP. METAB OLIC PANEL (14) potassium 4.8 mmol/ L 3.5-5. 2 Not Available [facility] [address] [facility] [place], [address], 07/10/2024 08:25:54 07/10/19 25 07/10/2024 COMP. METAB OLIC PANEL (14) chloride 102 mmol/ L 96-106 Not Available [facility] [address] [facility] [place], [address], 07/10/2024 08:25:54 07/10/19 25 07/10/2024 COMP. METAB OLIC PANEL (14) carbon dioxide, total 22 mmol/ L Not Available [facility] [address] [facility], [place], [address], 07/10/2024 08:25:54 07/10/19 25 07/10/2024 COMP. METAB OLIC PANEL (14) calcium 9.7 mg/dL 8.7-10 .3 Not Available [facility] [address] [facility] [place], [address], 07/10/2024 08:25:54 07/10/19 25 07/10/2024 COMP. METAB OLIC PANEL (14) protein, total 6.8 g/dL 6.0-8. 5 Not Available [facility] [address] [facility] [place], [address], 07/10/2024 08:25:54 07/10/19 25 07/10/2024 COMP. METAB OLIC PANEL (14) albumin 4.3 g/dL 3.8-4. 8 Not Available [facility] [address] [facility] [place], [address], 07/10/2024 08:25:54 07/10/19 25 07/10/2024 COMP. METAB OLIC PANEL (14) globulin, total 2.5 g/dL 1.5-4. 5 Not Available [facility] [address] [facility] [place], [address], 07/10/2024 08:25:54 07/10/19 25 07/10/2024 COMP. METAB OLIC PANEL (14) bilirubin, total 0.3 mg/dL 0.0-1. 2 Not Available [facility] [address] [facility], [place], [address], 07/10/2024 08:25:54 07/10/19 25 07/10/2024 COMP. METAB OLIC PANEL (14) alkaline phosphatase 84 IU/L 44-121 Not Available [facility] [address] [facility], [place], [address], 07/10/2024 08:25:54 07/10/19 25 07/10/2024 COMP. METAB OLIC PANEL (14) AST (SGOT) 18 IU/L 0-40 Not Available [facility] [address] [facility], [place], [address], 07/10/2024 08:25:54 07/10/19 25 07/10/2024 COMP. METAB OLIC PANEL (14) ALT (SGPT) 15 IU/L 0-32 Not Available [facility] [address] [facility], [place], [address], 07/10/2024 08:25:54 07/10/19 25 07/10/2024 HEMOG LOBIN A1C hemoglobin A1C 6.3 % 4.8-5. 6 above high normal Predi abete s: 5.7 - 6.4 Diabe adam: >6.4 Glyce stephanie contr ol for adult s with diabe adam: <7.0 Not Available [facility] [address] [facility], [place], [address], 07/10/2024 08:25:55 07/10/19 25 07/10/2024 VITAM IN B12 vitamin B12 478 pg/mL 232-12 45 Not Available [facility] [address] [facility], [place], [address], 07/10/2024 08:25:56 07/10/19 25 07/09/2024 CBC WITH DIFFE RENTI AL/PL ATELE T WBC 8.0 x10e3 /uL 3.4-10 .8 Not Available [facility] [address] [facility], [place], [address], 07/10/2024 08:25:58 07/10/19 25 07/09/2024 CBC WITH DIFFE RENTI AL/PL ATELE T RBC 5.00 x10e6 /uL 3.77-5 .28 Not Available [facility] [address] [facility], [place], [address], 07/10/2024 08:25:58 07/10/19 25 07/09/2024 CBC WITH DIFFE RENTI AL/PL ATELE T hemoglobin 14.6 g/dL 11.1-1 5.9 Not Available [facility] [address] [facility], [place], [address], 07/10/2024 08:25:58 07/10/19 25 07/09/2024 CBC WITH DIFFE RENTI AL/PL ATELE T hematocrit 46.7 % 34.0-4 6.6 above high normal Not Available [facility] [address] [place], [address], 07/10/2024 08:25:58 07/10/19 25 07/09/2024 CBC WITH DIFFE RENTI AL/PL ATELE T MCV 93 fL 79-97 Not Available [facility] [address] [place], [address], 07/10/2024 08:25:58 07/10/1907/09/2024 CBC WITH DIFFE RENTI AL/PL ATELE T MCH 29.2 pg 26.6-3 3.0 Not Available [facility] [address] [place], [address], 07/10/2024 08:25:58 07/10/19 25 07/09/2024 CBC WITH DIFFE RENTI AL/PL ATELE T MCHC 31.3 g/dL 31.5-3 5.7 below low normal Not Available [facility] [address] [facility], [place], [address], 07/10/2024 08:25:58 07/10/19 25 07/09/2024 CBC WITH DIFFE RENTI AL/PL ATELE T RDW 13.1 % 11.7-1 5.4 Not Available [facility] [address] [facility], [place], [address], 07/10/2024 08:25:58 07/10/19 25 07/09/2024 CBC WITH DIFFE RENTI AL/PL ATELE T platelets 271 x10e3 /uL 150-45 0 Not Available [facility] [address] [facility], [place], [address], 07/10/2024 08:25:58 07/10/19 25 07/09/2024 CBC WITH DIFFE RENTI AL/PL ATELE T neutrophils 64 % notest ab. Not Available [facility] [address] [facility], [place], [address], 07/10/2024 08:25:58 07/10/19 25 07/09/2024 CBC WITH DIFFE RENTI AL/PL ATELE T lymphs 26 % notest ab. Not Available [facility] [address] [facility], [place], [address], 07/10/2024 08:25:58 07/10/19 25 07/09/2024 CBC WITH DIFFE RENTI AL/PL ATELE T monocytes 8 % notest ab. Not Available [facility] [address] [facility], [place], [address], 07/10/2024 08:25:58 07/10/19 25 07/09/2024 CBC WITH DIFFE RENTI AL/PL ATELE T eos 1 % notest ab. Not Available [facility] [address] [facility], [place], [address], 07/10/2024 08:25:58 07/10/19 25 07/09/2024 CBC WITH DIFFE RENTI AL/PL ATELE T basos 0 % notest ab. Not Available [facility] [address] [facility], [place], [address], 07/10/2024 08:25:58 07/10/19 25 07/09/2024 CBC WITH DIFFE RENTI AL/PL ATELE T neutrophils (absolute) 5.2 x10e3 /uL 1.4-7. 0 Not Available [facility] [address] [facility], [place], [address], 07/10/2024 08:25:58 07/10/19 25 07/09/2024 CBC WITH DIFFE RENTI AL/PL ATELE T lymphs (absolute) 2.1 x10e3 /uL 0.7-3. 1 Not Available [facility] [address] [facility], [place], [address], 07/10/2024 08:25:58 07/10/19 25 07/09/2024 CBC WITH DIFFE RENTI AL/PL ATELE T monocytes(ab solute) 0.6 x10e3 /uL 0.1-0. 9 Not Available [facility] [address] [place], [address], 07/10/2024 08:25:58 07/10/19 25 07/09/2024 CBC WITH DIFFE RENTI AL/PL ATELE T eos (absolute) 0.1 x10e3 /uL 0.0-0. 4 Not Available [facility] [address] [facility], [place], [address], 07/10/2024 08:25:58 07/10/19 25 07/09/2024 CBC WITH DIFFE RENTI AL/PL ATELE T baso (absolute) 0.0 x10e3 /uL 0.0-0. 2 Not Available [facility]) [address] [facility], [place], [address], 07/10/2024 08:25:58 07/10/19 25 07/09/2024 CBC WITH DIFFE RENTI AL/PL ATELE T immature granulocytes 1 % notest ab. Not Available [facility]) [address] [facility], [place], [address], 07/10/2024 08:25:58 07/10/19 25 07/09/2024 CBC WITH DIFFE RENTI AL/PL ATELE T immature grans (abs) 0.0 x10e3 /uL 0.0-0. 1 Not Available [facility]) [address] [facility], [place], [address], 07/10/2024 08:25:58 07/10/19 25 07/10/2024 VITAM IN D, 25-HY DROXY vitamin D, 25-hydroxy 30.7 NG/mL 30.0-1 00.0 Vitam in D defic iency has been defin ed by the Insti tute of Medic ine and an Endoc rine Socie ty pract ice guide line as a level of serum 25-OH vitam in D less than 20 ng/mL (1,2) . The Endoc rine Socie ty went on to [facility] er defin e vitam in D insuf ficie ncy as a level betwe en 21 and 29 ng/mL (2). 1. IOM (Inst itute of Medic ine). 2010. Dieta ry refer ence intak es for calci um and D. Sweetie jacobo [place]: The [facility]ade [facility] Press . 2. Milton wren MF, Guille sorto [place], Roger off-F evin i MELO, et al. Evalu ation , treat ment, and preve ntion of vitam in D defic iency : an Endoc rine Socie ty clini janie pract ice guide line. JCEM. 2010; 96(7) :1911 -30. Not Available [facility] [address] [facility], [place], [address], 07/10/2024 08:25:59 12/14/19 24 12/14/2023 MAMMO , alexe calos, digit al, bilat eral No observ ation record ed. [facility] [address] [place], [address], 12/15/2023 13:57:53 12/28/19 24 12/14/2023 bone densi ty No observ ation record ed. [facility] [address] [place], [address], 12/28/2023 14:01:46 07/10/19 25 07/12/2024 elect rocar diogr am No observ ation record ed. [facility] In-Office Order Internal Use Only DO Not Attach Compendium DO Not Attach Compendium, Do Not Delete/merge, [id number] 07/12/2024 16:46:39 07/10/19 25 07/09/2024 elect rocar diogr am No observ ation record ed. CHANO In-Office Order Internal Use Only DO Not Attach Compendium DO Not Attach Compendium, Do Not Delete/merge, [id number] 07/09/2024 11:46:45 07/10/19 elect rocar diogr am No observ ation record ed. [email or web address] Not Available 2024 16:47:06 07/12/19 25 11/22/2022 CT, chest , w/o contr ast No observ ation record ed. [facility] (Imaging) [address], [place], [address], 07/16/2024 15:15:40 Result Notes None recorded. Problems Name Problem SNOMED Code Status Onset Date Resolution Date Notes Provider Name and Address Organization Details Recorded Time Polyp of colon 69717072 Active 2015 tubular & hyperplas tic polyps -08/2020 Kathy Alcaraz MD Attn: Alex g,[address], [place], [address], [place] - [facility] 3 08:48:17 Hypergly cemia 57482738 Active 2020 Kathy Alcaraz MD Attn: Alex giordano,[address], [place], [address], [place] [facility] 3 08:48:17 Fracture of radius 41699440 Active 2020 sees ortho Kathy Alcaraz MD Attn: Alex giordano,[address], [place], [address], [place] [facility] 1 13:10:53 History of osteopen ia 900180384 Completed 202001/12/2021 Kathy Alcaraz MD Attn: Alex giordano,[address], [place], [address], [place] - [facility] 1 13:31:02 Osteopor osis 29108791 Active 2020 Ktahy Alcaraz MD Attn: Alex giordano,[address], [place], [address], [place] [facility] 3 08:48:17 Tobacco user 312442322 Active ldct 11/20 Kathy Alcaraz MD Attn: Alex giuliana,[address], [place], [address], [place] [facility] 3 12:08:45 Night sweats 09876034 Completed 02/25/2016 Removal Reason: resolved Nelda Figueroa PA-C Attn: Bryanjacquelyn giordano,[address], [place], [address], [place] [facility] 6 08:59:22 Wheezing 95684491 Completed 02/25/2016 Removal Reason: resolved Nelda Figueroa PA-C Attn: Bryanjacquelyn giordano,[address], [place], [address], [place] [facility] 6 08:59:00 Chronic obstruct ivett pulmonar y disease 56132116 Active Kathy Alcaraz MD Attn: Alex giordano,[address], [place], [address], [facility] - [facility] 3 08:48:17 Nasal congesti on 61860467 Completed 02/25/2016 Removal Reason: resolved Nelda Figueroa PA-C Attn: Alex giordano,[address], [place], [address], [facility] - [facility] 6 08:59:09 Obese 515647746 Active Kathy Alcaraz MD Attn: Accountjacquelyn giordano,[address], [place], [address], [facility] - [facility] 3 08:48:17 Avulsion of toenail 097256057 Completed 02/25/2016 Removal Reason: resolved Nelda Figueroa PA-C Attn: Alex giordano,[address], [place], [address], [facility] - [facility] 6 08:58:50 Benign essentia l hyperten soco 4308760 Active 2016 Kathy Alcaraz MD Attn: Alex giordano,[address], [place], [address], [facility] - [facility] 3 08:48:17 Problem Notes None recorded. Procedures Surgical History Date Name Laterality Status Provider Name and Address Organization Details Recorded Time 01/08/20 22 Cryosurgery Warts/Skin Tags completed Johnnie Sánchez MD Attn: Accounting,[address], [place], [address], [facility] - [facility] 01/07/2022 12:39:43 01/08/20 22 Skin Tag Removal completed Johnnie Sánchez MD Attn: Accounting,[address], [place], [address], [facility] - [facility] 01/07/2022 12:39:50 10/09/19 21 procedure on radius completed Giulia Gilman [place] [facility] 12/31/2020 09:52:01 09/18/19 21 colonoscopy completed Kathy Alcaraz MD Attn: Accounting,[address], [place], [address], [place] [facility] 07/07/2021 10:26:01 03/02/20 20 Most Recent Mammogram completed Paulette Yun [place] [facility] 08/03/2020 11:09:35 03/31/20 16 Nebulizer tx completed Nelda iFgueroa PA-C Attn: Accounting,[address], [place], [address], [place] [facility] 03/31/2016 13:03:47 03/31/20 15 Date of Last Pap Smear completed [place]aulette Jama [place] [facility] 04/16/2015 09:45:11 10/10/19 15 Nebulizer tx [place] Ary [place] [facility] 10/09/2014 16:28:55 05/01/19 01 Other completed Glendy Ontiveros [place] [facility] 07/15/2014 09:45:38 05/01/18 74 Other completed [place]aulette [place]ord [place] [facility] 03/31/2015 10:47:47 Imaging Results Imaging Date Name Status LastModified by Organization Details LastModified Time 12/14/2023 MAMMO, screening, digital, bilateral completed [facility] [address] [place], [address], 12/15/2023 13:57:53 12/14/2023 bone density completed [facility] [address] [place], [address], 12/28/2023 14:01:46 07/12/2024 electrocardiogram completed CHANO In-Offi ce Order Internal Use Only DO Not Attach Compendium DO Not Attach Compendium, Do Not Delete/merge, [id number] 07/12/2024 16:46:39 07/09/2024 electrocardiogram completed CHANO In-Offi ce Order Internal Use Only DO Not Attach Compendium DO Not Attach Compendium, Do Not Delete/merge, [id number] 07/09/2024 11:46:45 07/09/2024 electrocardiogram completed [email or web address] Informa tion not available 07/11/2024 16:47:06 11/22/2022 CT, chest, w/o contrast completed [email or web address] [facility] (Im[facility]) [address], [place], [address], 07/16/2024 15:15:40 Procedure Notes None recorded. Medical Equipment None Reported. Allergies No known drug allergies Medications Name Sig Start Date Stop Date Status Note LastModified by Organization Details LastModified Time cyclobenz aprine 10 mg tablet 02/18 completed Not Available Not Available Not Available terbinafi ne HCl 1 % topical cream APPLY TO THE AFFECTED AND SURROUND ING AREAS OF SKIN BY TOPICAL ROUTE ONCE DAILY 06/11 completed not taking Not Available Not Available Not Available alendrona te 10 mg tablet TAKE 1 TABLET BY MOUTH EVERY DAY 07/09 completed hold x 2 weeks start 01/30/24 Not Available Not Available Not Available Qvar 80 mcg/actua tion Metered Aerosol oral inhaler 12/15 completed Not Available Not Available Not Available doxycycli ne hyclate 100 mg capsule TAKE 1 CAPSULE BY MOUTH TWICE DAILY FOR 7 DAYS 12/31 completed complete d Not Available Not Available Not Available nicotine 14 mg/24 hr daily transderm al patch Apply 1 patch every day by transder mal route for 42 days. 03/31 completed not using Not Available Not Available Not Available albuterol sulfate 2.5 mg/3 mL (0.083 %) solution for nebulizat ion USE 1 VIAL IN NEBULIZE R EVERY 4 TO 6 HOURS 09/22 completed Not Available Not Available Not Available cetirizin e 10 mg tablet TAKE 1 TABLET BY MOUTH EVERY DAY active PRN Not Available Not Available No t Available azithromy kyler 250 mg tablet TAKE 2 TABLETS BY MOUTH ONCE DAILY FOR 1 DAY THEN 1 TABLET BY MOUTH FOR 4 DAYS 12/27 completed Not Available Not Available Not Available tizanidin e 4 mg tablet Take 1 tablet 3 times a day by oral route for 20 days. 02/18 completed pt not taking Not Available Not Available Not Available acetazola mide 125 mg tablet TAKE 1 TABLET BY MOUTH TWICE DAILY 03/31 completed Not Available Not Available Not Available hydrocodo ne 5 mg-acetam inophen 325 mg tablet TAKE 1 TABLET BY MOUTH EVERY 6 HOURS NEEDED FOR PAIN 12/31 completed not taking Not Available Not Available Not Available prednison e 20 mg tablet TAKE 1 TABLET BY MOUTH EVERY DAY 12/27 completed Not Available Not Available Not Available alendrona te 70 mg tablet TAKE 1 TABLET BY MOUTH EVERY WEEK 07/07 completed not taking Not Available Not Available Not Available amlodipin e 2.5 mg tablet TK 1 T PO QD 06/11 completed Not Available Not Available Not Available amlodipin e 5 mg tablet Take 1 tablet every day by oral route. 2024 active Not Available Not Available Not Avai lable tramadol 50 mg tablet Take 1 tablet every day by oral route as needed. 02/18 completed pt not taking Not Available Not Available Not Available Mobic 15 mg tablet Take 1 tablet every day by oral route as needed. 06/11 completed not taking Not Available Not Available Not Available sodium polystyre ne sulfonate 15 gram/60 mL oral suspensio n take 30ml (1/2 bottle) by mouth x1 08/15 completed Not Available Not Available Not Available cephalexi n 500 mg capsule TAKE 1 CAPSULE BY MOUTH THREE TIMES DAILY FOR 7 DAYS 02/23 completed Not Available Not Available Not Available Qvar 40 mcg/actua tion Metered Aerosol oral inhaler INHALE 2 PUFFS BY MOUTH TWICE DAILY 05/19 completed Not Available Not Available Not Available monteluka st 10 mg tablet TAKE 1 TABLET BY MOUTH EVERY DAY active PRN Not Available Not Available No t Available albuterol sulfate HFA 90 mcg/actua tion aerosol inhaler INHALE 2 PUFFS BY MOUTH EVERY 4 HOURS NEEDED 2024 active Not Available Not Available Not Avai lable neomycin- polymyxin -hydrocor t 3.5 mg-10,000 unit/mL-1 % ear drops,vic p INSTILL 4 DROPS INTO AFFECTED EAR(S) BY OTIC ROUTE 3 TIMES PER DAY 08/15 completed Not Available Not Available Not Available Bactrim DS 800 mg-160 mg tablet Take 1 tablet every 12 hours by oral route for 5 days. 12/28 completed Not Available Not Available Not Available Mucinex 600 mg tablet, extended release Take 1 tablet every 12 hours by oral route. 12/28 completed prn Not Available Not Available Not Available bupropion HCl XL 150 mg 24 hr tablet, extended release TAKE 1 TABLET BY MOUTH EVERY DAY 10/24 completed PRN Not Available Not Available Not Available Spiriva with HandiHale r 18 mcg and inhalatio n capsules INHALE THE CONTENTS OF 1 CAPSULE VIA INHALATI ON DEVICE EVERY DAY 07/09 completed Not Available Not Available Not Available Atrovent HFA 17 mcg/actua tion aerosol inhaler 2 puffs inhaled qid 08/24 completed Not Available Not Available Not Available cholecalc iferol (vitamin D3) 25 mcg (1,000 unit) tablet TAKE 1 TABLET BY MOUTH EVERY DAY active OTC Not Available Not Available No t Available budesonid e-formote rol HFA 160 mcg-4.5 mcg/actua tion aerosol inhaler INHALE 2 PUFFS BY MOUTH TWICE DAILY 07/09 completed Not Available Not Available Not Available Aerospan 80 mcg/actua tion HFA aerosol inhaler Inhale 2 puffs twice a day by inhalati on route. 12/15 completed It did not work 08/24/16 Not Available Not Available Not Available Wixela Inhub 250 mcg-50 mcg/dose powder for inhalatio n Inhale 1 puff twice a day by inhalati on route for 30 days. 2024 active Not Available Not Available Not Avai lable Fluad Quad 2428-1708 (65yr up)(PF) 60 mcg (15 mcg x 4)/0.5mL IM syringe ADM 0.5ML IM UTD 06/11 completed Not Available Not Available Not Available Vitals Date Recorded Body height Body mass index (BMI) Body weight Heart rate Respiratory rate Body temperature Oxygen saturation Oxygen saturation in Arterial blood by Pulse oximetry Systolic blood pressure Diastolic blood pressure Provider Name and Address Organization Details Last Updated DateTime 3 161.29 cm 31.6 kg/m2 07417.5 8 g 97 /min 14 /min 97.3 [degF] 96 % 96 % 131 mm[Hg] 78 mm[Hg] Giulia Gilman [place] - [facility] 3 09:51:37 Date Recorded Body height Body mass index (BMI) Body weight Heart rate Respiratory rate Body temperature Oxygen saturation Oxygen saturation in Arterial blood by Pulse oximetry Systolic blood pressure Diastolic blood pressure Provider Name and Address Organization Details Last Updated DateTime 4 161.29 cm 31.4 kg/m2 45923.3 5 g 88 /min 14 /min 97.2 [degF] 98 % 98 % 124 mm[Hg] 70 mm[Hg] Giulia Gilman MA [facility] 4 10:24:11 Date Recorded Body height Body mass index (BMI) Body weight Respiratory rate Body temperature Heart rate Oxygen saturation Oxygen saturation in Arterial blood by Pulse oximetry Systolic blood pressure Diastolic blood pressure Provider Name and Address Organization Details Last Updated DateTime 4 161.29 cm 30.1 kg/m2 98821.3 2 g 16 /min 97.3 [degF] 93 /min 95 % 95 % 112 mm[Hg] 71 mm[Hg] Vero Stewart MA [facility] 4 14:11:25 Date Recorded Body height Body mass index (BMI) Body weight Heart rate Respiratory rate Body temperature Oxygen saturation Oxygen saturation in Arterial blood by Pulse oximetry Systolic blood pressure Diastolic blood pressure Systolic blood pressure Diastolic blood pressure Provider Name and Address Organization Details Last Updated DateTime 4 161.29 cm 30.1 kg/m2 83872.3 2 g 73 /min 14 /min 97.2 [degF] 95 % 95 % 147 mm[Hg] 82 mm[Hg] 117 mm[Hg] 79 mm[Hg] Giulia Gilman [place] - [facility] 4 10:03:32 Date Recorded Body height Body mass index (BMI) Body weight Oxygen saturation Oxygen saturation in Arterial blood by Pulse oximetry Heart rate Respiratory rate Body temperature Systolic blood pressure Diastolic blood pressure Provider Name and Address Organization Details Last Updated DateTime 5 161.29 cm 30.8 kg/m2 91780.7 7 g 96 % 96 % 96 /min 16 /min 97.3 [degF] 121 mm[Hg] 78 mm[Hg] Giulia Gilman MA [facility] 5 10:41:40 Social History Question Answer Notes LastModified by Organization Details LastModified Time Tobacco Smoking Status Current Every Day Smoker Glendy Ontiveros MA [facility], [place] - [facility] 07/15/2014 09:45:38 Do You Have An Advance Directive? Yes DNR Information not available 08/15/2018 Is Your Home Air Conditioned? Yes [email or web address] Information not available 06/11/2020 What Is Your Level Of Alcohol Consumption? Occasional Wine [email or web address] Information not available 08/15/2018 Do You Have A Basement? Yes [email or web address] Information not available 06/11/2020 Are You Blind Or Do You Have Difficulty Seeing? No Glasses Information not available 08/13/2020 Is Blood Transfusion Acceptable In An Emergency? Yes Information not available 03/31/2015 What Is Your Level Of Caffeine Consumption? Heavy Mod - Heavy Information not available 07/09/2024 Are You A Caregiver? No [email or web address] Information not available 06/11/2020 How Much Tobacco Do You Chew? None Information not available 03/31/2015 In The 14 Days Before Symptom Onset, Have You Had Close Contact With A Laboratory-confi rmed COVID-19 While That Case Was Ill? No Information not available 12/05/2019 In The 14 Days Before Symptom Onset, Have You Had Close Contact With A Person Who Is Under Investigation For COVID-19 While That Person Was Ill? No Information not available 12/05/2019 Have You Been To An Area Known To Be High Risk For COVID-19? No Information not available 12/05/2019 Are You Currently Employed? No Information not available 08/03/2020 Are You Deaf Or Do You Have Serious Difficulty Hearing? No [email or web address] Information not available 06/11/2020 What Type Of Diet Are You Following? REGULAR Trying To Cut Out Starchs [email or web address] Information not available 10/02/2023 Which Illicit Or Recreational Drugs Have You Used? No Information not available 03/31/2015 Have You Processed Blood Or Body Fluids From An Ebola Virus Disease Patient Without Appropriate PPE? No [email or web address] Information not available 06/11/2020 Do You Reside In Or Have You Traveled To An Area Where Ebola Virus Transmission Is Active? No [email or web address] Information not available 06/11/2020 Do You Or Have You Ever Used E-cigarettes Or Vape? Never Used Electronic Cigarettes Information not available 12/05/2019 Education 4 Year College bhumi james not available 03/31/2015 What Is The Highest Grade Or Level Of School You Have Completed Or The Highest Degree You Have Received? [id number] Information not available 08/13/2020 Do You Have An Electrostatic Air Filter? No [email or web address] Information not available 06/11/2020 Have You Been Exposed To Chemicals Or Toxins? No [email or web address] Information not available 06/11/2020 Have You Been Exposed To Heavy Metals? No [email or web address] Information not available 06/11/2020 Have There Been Any Changes To Your Family Or Social Situation? No [email or web address] Information not available 06/11/2020 Are There Any Guns Present In Your Home? Yes Information not available 12/05/2019 Which Of Your Hands Is Dominant? Right [email or web address] Information not available 06/11/2020 Have You Recently Or Are You Planning To Travel To An Area With Zika Virus? No [email or web address] Information not available 06/11/2020 Do You Have A Humidifier? No [email or web address] Information not available 06/11/2020 Do You Use Insect Repellent Routinely? No [email or web address] Information not available 06/11/2020 Legally Blind In One Or Both Eyes? No Information not available 08/15/2018 Where [facility] You Live? [facility] [email or web address] Information not available 06/11/2020 Live Alone Or With Others? With Others [facility] Information not available 03/31/2015 Do You Have A High School Diploma Or Higher Education? Yes [email or web address] Information not available 06/11/2020 Do You Sometimes Have To Miss Your Medical Appointments Due To Difficult Getting Transportation? No [email or web address] Information not available 06/11/2020 Do You Feel Unfairly Treated Due To Things Such As Race, Age, Gender, Disability Or Some Other Reason? No [email or web address] Information not available 06/11/2020 Do You Feel Physically And Emotionally Safe While Living At Home? Yes [email or web address] Information not available 06/11/2020 Do You Feel Physically And Emotionally Safe In Your Neighborhood Or Other Public Places? Yes [email or web address] Information not available 06/11/2020 How Long Have You Lived There? 33 Years [email or web address] Information not available 06/11/2020 Marital Status Unknown Informatio n not available 12/05/2019 Do You Have A Medical Power Of Senior Oracle Database Administrator? Yes [email or web address] Information not available 06/11/2020 Do You Have Moisture Problems In Your Home? Yes [email or web address] Information not available 06/11/2020 What Was The Date Of Your Most Recent Tobacco Screening? 07/09/2024 Information not available 07/09/2024 How Many Children Do You Have? 1 [email or web address] Information not available 06/11/2020 Do You Have An Out Of Hospital DNR? Yes [email or web address] Information not available 06/11/2020 What Is Your Current Pack Years? [email or web address] Information not available 08/03/2020 Performs Monthly Self-breast Exam? Yes Information not available 03/31/2015 Do You Have Any Pets? Yes [email or web address] Information not available 06/11/2020 What Is Your Relationship Status? Other Partner Information not available 12/31/2020 Do You Use Your Seat Belt Or Car Seat Routinely? Yes Information not available 06/11/2020 Seat Belts Used Routinely Yes Information not available 03/31/2015 Are You Sexually Active? No Information not available 03/31/2015 Do You Have Smoke And Carbon Monoxide Detectors In Your Home? Yes [email or web address] Information not available 06/11/2020 At What Age Did You Start Smoking Tobacco? 19 Information not available 03/31/2015 Are You Passively Exposed To Smoke? No [email or web address] Information not available 06/11/2020 Do You Or Have You Ever Used Smokeless Tobacco? Never Used Smokeless Tobacco Information not available 12/05/2019 Are There Any Smokers In Your House? No [email or web address] Information not available 06/11/2020 How Much Tobacco Do You Smoke? 1 PPD Information not available 07/09/2024 Do You Participate In Social Media? Yes Information not available 06/11/2020 General Stress Level Low Information not available 03/31/2015 Do You Feel Stressed (tense, Restless, Nervous, Or Anxious, Or Unable To Sleep At Night)? [id number] [email or web address] Information not available 06/11/2020 Do You Use Any Illicit Or Recreational Drugs? No [email or web address] Information not available 06/11/2020 Do You Use Sunscreen Routinely? Yes Information not available 03/31/2015 Has Tobacco Cessation Counseling Been Provided? Yes Information not available 08/15/2018 On What Date Was Tobacco Cessation Counseling Provided? 07/09/2024 Information not available 07/09/2024 How Many Years Have You Smoked Tobacco? 53 12/30/22 [email or web address] Information not available 12/30/2022 Have You Recently Traveled Abroad? No [email or web address] Information not available 06/11/2020 Are You Currently In School? No [email or web address] Information not available 06/11/2020 Do You Have Any Dietary Restrictions? No [email or web address] Information not available 06/11/2020 Do You Or Have You Ever Used Any Other Forms Of Tobacco Or Nicotine? No [email or web address] Information not available 06/11/2020 Sex: Female Functional Status Question Answer Note LastModified by Organizat ion Details LastModified Time Do you have difficulty walking or climbing stairs? No [email or web address] Information not available 06/11/2020 Do you have transportation difficulties? No [email or web address] Information not available 06/11/2020 Are you able to walk? YESWOREST [email or web address] Information not available 06/11/2020 Do you have difficulty doing errands alone? No [email or web address] Information not available 06/11/2020 Are you able to care for yourself? Yes [email or web address] Information n ot available 06/11/2020 Do you have difficulty dressing or bathing? 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 No [email or web address] Information no t available 06/11/2020 Family History Relationship Description Onset Age of this Age Resolved Age Notes LastModified by Organization Details LastModified Time Father Malignant tumor of pancreas [place] Not available 2014 09:45:10 Father Congenital hip dysplasia [place] Not available 2014 09:45:10 Mother Hypertensive disorder [place] Not available 2014 09:45:10 Mother Hypercholest erolemia [place] Not available 2014 09:45:10 Mother Alzheimer's disease [email or web address] Not available 2017 09:42:29 Sister Congenital hip dysplasia [place] Not available 2014 09:45:10 Brother Malignant tumor of pancreas [place] Not available 2014 09:45:10 Maternal Grandmother Heart disease [place] Not available 2014 09:45:10 Maternal Grandmother Hypertensive disorder [place] Not available 2014 09:45:10 Maternal Grandfather Hypercholest erolemia [place] Not available 2014 09:45:10 Medical History Condition Response Coronary Artery Disease N Other Y High Blood Pressure N Atrial Fibrillation N Breast Cancer N Kidney or Bladder Problems N Thyroid Problems N Depression N COPD N Blood Clots N GI Problems N Acne N Breast Problem N Skin Problems N Eating Disorder N Anemia N Anesthesia Complications N Heart Attack (TN) N Headaches/Migraines N Anxiety Disorder N Ovarian Cancer N Diabetes N Muscle, Joint, or Bone Problems N Blood Transfusions N Seizures/Epilepsy N Infertility N Polyps Y Acid Reflux (GERD) Y Cancer N Stroke N Abuse/Domestic Violence N Asthma N Allergies N Endometriosis N High Cholesterol N Hepatitis N Liver Disease N Heart Disease N Headaches N Pre-Eclampsia N Osteoporosis N Heart Failure N Gynecological History Statement/Question Response Abnormal Pap N On BCP's at Conception? N STIs/STDs Y HPV Vaccine N Most Recent Mammogram 03/02/2020 Age at Menarche 15 Current Control Method Menopause Age at First Child 34 If Post Menopausal, Age at Menopause 50 Sexually Active? N Menses Monthly N Date of Last Pap Smear 03/31/2015 LMP Obstetrics History GPAL:G 2 P 2 0 0 1 Type Value Multiple Births 0 Full Term 2 Induced 0 Spontaneous 0 Premature 0 Living 1 Ectopics 0 Total 2 Immunizations Vaccine Type Date Status Note Provider Nam e and Address Organization Details Recorded Time Influenza, high-dose, quadrivalent, PF 0 completed Valeria [place], [place] [facility] 06/11/2020 09:35:11 Influenza, high-dose, quadrivalent, PF 2 completed Giulia Gilman [place], [place] [facility] 03/31/2022 09:45:52 COVID-19, mRNA, LNP-S, bivalent, PF, 50 mcg/0.5 mL or 25mcg/0.25 mL dose 2 completed Giulia Gilman [place] [facility] 03/31/2022 09:46:34 Influenza, split virus, quadrivalent, preservative 6 completed Not Available [facility] 05/18/2019 02:32:36 influenza, unspecified formulation 3 completed Giulia Gil[place] [facility] 02/23/2023 09:43:42 Influenza, split virus, quadrivalent, preservative 7 completed Not Available [facility] 05/18/2019 02:39:19 Pneumococcal conjugate PCV 13 7 completed Not Available [facility] 05/18/2019 02:47:52 Influenza, split virus, quadrivalent, preservative 8 completed Not Available [facility] 05/18/2019 02:42:03 pneumococcal polysaccharide PPV23 8 completed Not Available [facility] 05/18/2019 02:36:33 Influenza, split virus, quadrivalent, preservative 9 completed Not Available [facility] 05/18/2019 02:38:15 COVID-19, mRNA, LNP-S, PF, 100 mcg/0.5mL dose or 50 mcg/0.25mL dose 1 completed Yaritza Stephenson [place] [facility] 06/08/2020 15:08:50 COVID-19, mRNA, LNP-S, PF, 100 mcg/0.5mL dose or 50 mcg/0.25mL dose 1 completed Kristina Mac [place] [facility] 07/06/2020 17:51:55 Tdap 3 completed Giulia Gilman MA [facility], [place] - [facility] 10/24/2022 16:32:06 Past Encounters Encounter ID Performer Location Encounter Start Date Encounter Closed Date Diagnosis/Indication Diagnosis SNOMED-CT Code Diagnosis ICD10 Code Diagnosis Note [id number] [facility] (Adult Med) [address] [place] [address] 07/15/2014 09:02:12 07/15/2014 11:18:39 Tobacco user [id number] Patient trying to quit. Wheezing occasional ly. Encouraged cessation. Night sweats [id number] Wi ll check labs, CBC, TSH. Patient states she is utd on PPD- normal. Can follow up with [employer] regarding hormones, options, etc. Wheezing 31159975 Comes and goes. Patient out of albuterol. Will refill today. [id number] [facility] (Adult Med) [address] [place] [address] 10/09/2014 15:35:17 10/09/2014 16:56:28 Wheezing [id number] Still wheezing. Start qvar and cont albuterol prn. Neb treatment now with albuterol and atrovent. Will get Allergen panal ordered- [id number] area 8, [id number] Mini panel- 11 allergens, and add horse [id number] [phone] [id number] Nolan Dunn (SHEET METAL SUPERINTENDENT) [address] [facility] [place] [address] 03/31/2015 10:05:37 03/31/2015 11:34:53 Gynecologic examination 37277520 Z01.419 Venereal d isease screening 260642187 Z11.3 RTO 2 weeks for results. Screening for malignant neoplasm of breast 488335721 Z12.39 Last mammogram 12/2013 Screening for malignant neoplasm of colon 642214355 Z12.11 Last colonoscop y done at 52 y/o. Tobacco user 842490713 Z 72.0 Pt. to consider cutting down by one cigarette per day each month. [id number] Nolan Dunn (SHEET [employer] SUPERINTENDENT) [address] [place] [address] 04/16/2015 09:30:25 04/16/2015 10:18:57 Gynecologic examination 36499240 Z01.419 Pap was normal with negative hr-HPV, dwp. Cholestero l, glucose, and thyroid were all normal, dwp. Venereal d isease screening 821127529 Z11.3 Vaginal culture was negative for GC, chlam, and TV, dwp. STD panel was also completely negative. Individual test results d/w pt. [id number] Carissa Ary Dunn (Adult Med) [address] [place] [address] 08/18/2015 09:37:30 08/18/2015 11:12:58 Adult health examination 424763824 Z00.01 Encouraged well balanced meals, active lifestyle, and routine vision, jet ski mechanic, and dental apts. Tobacco user 338123527 Z 72.0 Patient trying to quit. Wheezing occasional ly. Encouraged cessation. Chronic ob structive pulmonary disease 37205163 J44.9 02/25/14 indicated patient has COPD. Patient is still smoking. Encouraged cessation. Wheezing often. Allergy panel negative for items tested. Continue albuterol prn, qvar bid, and adding atrovent. Obese 955630044 E66.9 Diet and exercise encouraged . Avulsion of toenail 4309 94612 S91.212A Left great toe nail removed with scapal. Wear protective shoe at all times. [id number] ELLEN Whiting (Adult Med) [address] [place] [address] 02/25/2016 09:20:01 02/25/2016 10:46:21 Chronic obstructive pulmonary disease 50555880 J44.9 discussed at length how to use inhalers. Recommend using Qvar BID if she is using albuterol more than twice a day 3 days a week or if it is her bad allergy season. Tobacco user 612368218 Z 72.0 Body mass index 30+ - obesity 562106747 Z68.32 reviewed labs from last visit, good cholestero l numbers. cont being active, follow heart healthy diet. Needs infl uenza immunization 355941864 Z23 [id number] ELLEN Whiting (Adult Med) [address] [place] [address] 03/31/2016 09:28:35 03/31/2016 13:34:40 Chronic obstructive pulmonary disease 53995043 J44.9 discussed at length how to use inhalers. Recommend using Qvar both morning and night. Also recommend getting nebulizer for home use for when she isn't responding to inhalers. Elevated blood-pressure reading without diagnosis of hypertension 510779273 R03.0 BP improved after nebulizer treatment. Likely elevated BP at home first thing in AM if she is not using QVAR BID. Pt strongly encouraged to use Qvar BID and see if it makes a difference in her blood pressures. No meds at this time. Tobacco user 690842374 Z 72.0 Patient again counseled to stop smoking, she didn't smoke all day yesterday and will continue to try on her own. [id number] ELLEN Whiting (Adult Med) [address] [place] [address] 08/24/2016 08:53:25 08/25/2016 10:37:14 Chronic obstructive pulmonary disease 19150690 J44.9 uncontroll ed. Aerospan did not work for her exacerbati ons. given a sample of Symbicort since this worked for her in past and we will see if Qvar will be approved this time. Benign ess ential hypertension 8551612 I10 New diagnosis. Likely complicate d by uncontroll ed COPD. start low dose med, call if any adverse effects. Cont to monitor at home and call with readings in one week. Hyperlipid emia screening 867841312 Z13.220 prior labs from last year were good. follow low fat diet & start regular exercise routine. Tobacco user 732639270 Z 72.0 Cont with smoking cessation goals. Start exercising to off set any weight gain. Body mass index 30+ - obesity 001838756 Z68.34 weight gain since last visit. says she is eating more with trying to quit smoking. hasn't started exercise routine yet. 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 [id number] ELLEN Whiting (Adult Med) [address] [place] [address] 12/15/2016 11:28:07 12/15/2016 14:19:00 Benign essential hypertension 2833669 I10 controlled on low dose amlodipine . Tobacco user 672240413 Z 72.0 Cont with smoking cessation goals. She has patches, but doesn't want to substitue one form of nicotine for another. Chronic ob structive pulmonary disease 62653357 J44.9 Controlled on symbicort once a day. Increase to BID dose when allergies flare up especially in spring. Body mass index 30+ - obesity 123488303 Z68.33 down 5 lbs since last visit, continue to stay active especially as fall/winte r approaches and not as busy w/ outdoor activities . [id number] ELLEN Whiting (Adult Med) [address] [place] [address] 04/17/2017 09:28:42 04/18/2017 10:41:58 Benign essential hypertension 8831835 I10 controlled on low dose amlodipine . cont diet & exercise Chronic ob structive pulmonary disease 22902138 J44.9 better controlled on symbicort. recommend smoking cessation. try using Mucinex BID for the next 2 weeks to help w/ sinus and lung congestion sxs. Administra tion of influenza vaccine 82465830 Z23 Tobacco user 858624698 Z 72.0 down to 1/4 ppd, cont to try & reduce/sto p smoking Administra tion of pneumococcal vaccine 46403479 Z23 Pneumovax 23 due next year Hyperlipid emia screening 639818273 Z13.220 cont to stay active, low fat heart healthy diet Body mass index 30+ - obesity 562624220 Z68.34 cont to stay active, low fat heart healthy diet Allergic rhinitis 636649 04 J30.2 likely exacerbate d by burning wood on her property for the last 2 weeks or so. Start Mucinex BID and drink plenty of fluids. Start Netipot [id number] ELLEN Whiting (Adult Med) [address] [place] [address] 08/10/2017 09:19:41 09/12/2017 14:51:58 Allergic rhinitis 81511446 J30.2 Restart Mucinex BID and drink plenty of fluids Benign ess ential hypertension 4920955 I10 fair control. cont low dose amlodipine , low salt diet. 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 Chronic ob structive pulmonary disease 02422877 J44.9 35 pack yr smoking hx, recently reduced to 1/4ppd or less. No significan t weight loss or hemoptysis , no prior CXR abnormalit ies. Controlled now that she is on long acting inhaler on regular basis dwp screening for lung cancer due to long smoking hx. 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 dwp that it could be due to post-menop ausal hormone changes, but will rule out thyroid dysfunctio n and/or anemia or occult infection w/ CBC Screening mammography 24 272133 Z12.31 last done 2015. recommend repeating Osteoporosis 36247696 M8 1.0 Risk factors include: long h/o smoking, race, on long acting steroid inhalers, but no chronic prednisone use. patient advised to eat balanced diet with calcium & vit D, cont weight bearing exercise (pool activity doesn't count). [id number] ELLEN Whiting (Adult Med) [address] [place] [address] 02/06/2018 09:19:58 02/06/2018 12:39:14 Influenza vaccine needed 5352442943 106 Z23 Benign ess ential hypertension 4752900 I10 fair control. cont low dose amlodipine , low salt diet. 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 Tobacco user 624393553 Z 72.0 Chronic ob structive pulmonary disease 50806453 J44.9 35 pack yr smoking hx, recently reduced to 1/4ppd or less. No significan t weight loss or hemoptysis , no prior CXR abnormalit ies. Controlled now that she is on long acting inhaler on regular basis dwp screening for lung cancer due to long smoking hx. 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 hx of hyperkalem ia. cont low dose amlodipine . Chronic ob structive pulmonary disease 75842017 J44.9 well controlled , cont to work on smoking cessation Seasonal a llergic rhinitis 016230486 J30.2 spring/ connie season worse. Not for resuscitation 30 4151960 Z66 she will bring her paperwork for chart records Tobacco user 880874771 Z 72.0 discussed cessation again, not using patch [id number] ELLEN Whiting (Adult Med) [address] [place] [address] 11/15/2018 11:47:43 11/16/2018 08:36:01 Benign essential hypertension 3203111 I10 controlled cont current amlodipine dose Dysuria 56557321 R30.0 [id number] MD Mona Denton (Adult Med) [address] [place] [address] 12/28/2018 10:38:16 12/28/2018 15:58:14 Low back pain 496126098 M54.5 possibly due to musculoske letal pain /muscle spasmheat therapyref er to PTmobic prntramado l daily prn for severe pain -one time use Smoker 55639698 F17.320 [id number] MD Mona Denton (Adult Med) [address] [place] [address] 02/18/2019 10:20:36 02/19/2019 12:46:18 Administration of influenza vaccine 92110465 Z23 Benign ess ential hypertension 6740072 I10 stable on low dose amlodipine 2.5 mg daily Smoker 59759179 F17.200 Adult heal th examination 226413558 Z00.00 healthy diet and exercise discussed with pt Chronic ob structive pulmonary disease 29896335 J44.9 stable Overweight 130571280 E66 .3 healthy diet and exercise discussed with pt [id number] [facility] [address] [place] [address] 12/05/2019 08:17:58 12/09/2019 16:43:52 Benign essential hypertension 1450397 I10 stable on low dose amlodipine 2.5 mg daily Tinea pedis 4744173 B35. 3 of footkeep clean and dry [id number] MD Mona Denton (Adult Med) [address] [place] [address] 02/04/2020 08:12:38 02/07/2020 16:18:52 Benign essential hypertension 2605605 I10 stable on low dose amlodipine 2.5 mg daily Hyperglycemia 26318493 R 73.9 healthy diet and exercise discussed with pt Obesity 150482810 E66.9 Mammography abnormal 168 480332 R92.8 pt to go for further imaging . [id number] MARLEY Perez 14 IM 4 [facility] [place] [address] 06/08/2020 10:09:02 06/09/2020 06:44:37 Administration of SARS-CoV-2 antigen vaccine 798296862 Z23 [id number] MD Jada Dentonhalto (Adult Med) [address] [place] [address] 06/11/2020 08:37:49 06/13/2020 07:55:43 Benign essential hypertension 9210229 I10 Home bp are little high- pt to increase amlodipine 5 mg daily Smoker 58973545 F17.200 Chronic ob structive pulmonary disease 78267786 J44.9 stablept to d/c symbicort .start pt on spiriva [id number] MARLEY Perez 14 IM 4 [facility] [place] [address] 07/06/2020 10:05:27 07/07/2020 09:57:59 Administration of SARS-CoV-2 antigen vaccine 216821749 Z23 [id number] Nolan Troncoso Mona (SHEET METAL SUPERINTENDENT) [address] [place] [address] 08/03/2020 10:50:01 08/05/2020 08:18:12 Gynecologic examination 33208993 Z01.419 Last pap done 03/31/15 was negative with negative hr-HPV. Therefore, pap due. Pap done. Screening mammography of bilateral breasts 7149276909 90844 Z12.31 UTD. Last 03/2020. Screening for malignant neoplasm of colon 209129368 Z12.11 Last colonoscop y 06/04/15, repeat 5 years. Therefore, colonoscop y due. GI referral generated Screening for malignant neoplasm of respiratory tract 672470048 Z12.2 Fifty one pack year history. Last screening was 2017. Screening CT ordered. Obesity 922922803 E66.9 Nutrition and exercise discussed. [id number] MD Mona Denton (Adult Med) [address] [place] [address] 08/13/2020 09:04:54 08/14/2020 14:52:26 Benign essential hypertension 2647479 I10 Home bp are little high- pt to increase amlodipine 5 mg daily Chronic ob structive pulmonary disease 07843421 J44.9 with asthma -pt to continue symbicort Polyp of colon 16777799 K63.5 pt is going for colonoscop y on 09/17/2020 Smoker 45396770 F17.200 pt is not ready to quit yet [id number] MD Mona Denton (Adult Med) [address] [place] [address] 12/31/2020 09:32:08 12/31/2020 21:02:12 Benign essential hypertension 0541854 I10 pt to continue amlodipine 5 mg daily Chronic ob structive pulmonary disease 18190762 J44.9 with asthma -pt to continue symbicort Tobacco user 040499478 Z 72.0 Obesity 344368367 E66.9 History of osteopenia 47 8007314 Z87.39 Discussed about smoking cessation /weight bearing exercises / vit d3 supplement with calcium in diet- pt will consider bisphospho joshua after her bone density Screening for malignant neoplasm of skin 345968475 Z12.83 [id number] MD Mona Denton (Adult Med) [address] [place] [address] 07/07/2021 09:38:53 07/08/2021 07:39:06 Benign essential hypertension 5418532 I10 pt to continue amlodipine 5 mg daily Chronic ob structive pulmonary disease 07900118 J44.9 with asthma -pt to continue symbicort Hyperglycemia 94580348 R 73.9 healthy diet and exercise discussed with pt Osteoporosis 56580229 M8 1.0 -pt stopped taking bisphospha joshua -declined to take it Smoker 82249538 F17.200 pt wants to quit smoking - pt wants to try wellbutrin with patches Renewal of prescription 982528646 Z76.0 [id number] MD Mona Denton (Adult Med) [address] [place] [address] 09/22/2021 09:27:29 09/23/2021 16:14:37 Benign essential hypertension 1923356 I10 pt to continue amlodipine 5 mg daily Chronic ob structive pulmonary disease 50398257 J44.9 with asthma -pt to continue symbicort with spiriva Obesity 237831073 E66.9 Smoker 38428906 F17.200 pt wants to quit smoking - pt is on wellbutrin with patches , not taking as prescribed Multiple skin tags 33763 7009 L91.8 pt to go to [facility] /procedure clinic Renewal of prescription 739502853 Z76.0 [id number] MD Isaías SAUL 14 IM 4 [facility] [address] [place] [address] 01/07/2022 10:43:41 01/16/2022 14:15:42 Melanocytic nevus of skin 936676856 D22.9 nevus on back x2 treated with cryotherap y Multiple skin tags 16523 7009 L91.8 removed with excision [id number] MD Mona Denton (Adult Med) [address] [place] [address] 03/31/2022 09:24:02 04/04/2022 07:59:22 Benign essential hypertension 9393726 I10 pt to continue amlodipine 5 mg daily Chronic ob structive pulmonary disease 18931960 J44.9 with asthma -pt to continue symbicort with spiriva Obesity 212970697 E66.9 healthy diet and exercise discussed with pt [id number] [facility] [address] [place] [address] 10/24/2022 09:37:19 10/27/2022 10:48:50 Benign essential hypertension 2042592 I10 pt to continue amlodipine 5 mg daily Chronic ob structive pulmonary disease 96298867 J44.9 with asthma -pt to continue symbicort with spiriva Obesity 736742946 E66.9 healthy diet and exercise discussed with pt Administra tion of diphtheria, pertussis, and tetanus vaccine 791102624 Z23 Prediabetes 889554456 R7 3.03 healthy diet and exercise discussed with pt History of tobacco use 8215577146 103 Z87.891 Screening mammography 24 158317 Z12.31 Allergic rhinitis 999127 04 J30.9 -pt to use antihistam ine [id number] [facility] [address] [place] [address] 12/06/2022 14:55:26 12/07/2022 11:22:27 Pain of right knee joint 3977545873 98805 M25.561 -seen by chiropract or - pt has apt to see ortho [id number] MD [facility] [address] [place] [address] 12/30/2022 08:35:45 01/03/2023 09:16:59 Injury of finger 87840982 S69.91XA -keep clean and dryuptodat e with tdap-pt to take Keflex tid for a wk Benign ess ential hypertension 6896882 I10 fairly stable -pt to continue amlodipine 5 mg daily [id number] MD Jada Dentonhalto (Adult Med) [address] [place] [address] 02/23/2023 09:21:38 03/01/2023 14:39:38 Benign essential hypertension 3407989 I10 stable -pt to continue amlodipine 5 mg daily Chronic ob structive pulmonary disease 18776766 J44.9 with asthma -pt to continue symbicort with spiriva Overweight 726887516 E66 .3 healthy diet and exercise discussed with pt Allergic rhinitis 793737 04 J30.9 -pt to use antihistam ine Smoker 23037002 F17.200 pt still continues to smoke [id number] [facility] [address] [place] [address] 06/27/2023 10:03:18 06/28/2023 11:06:05 Benign essential hypertension 9965194 I10 stable -pt to continue amlodipine 5 mg daily Chronic ob structive pulmonary disease 27445808 J44.9 with asthma -pt to continue symbicort with spiriva Overweight 567587143 E66 .3 healthy diet and exercise discussed with pt Osteoporosis 61843435 M8 1.0 -pt stopped taking bisphospha joshua -declined to take itpt takes vit D /Ca containing foodpt is aware of weight bearing exercises [id number] [facility] [address] [place] [address] 10/02/2023 13:52:46 10/03/2023 15:32:31 Acute exacerbation of chronic obstructive pulmonary disease 106364726 J44.1 -continue inhalerspt to go to ER if problem worsen / pt to stop smoking Smoker 66993880 F17.200 pt still continues to smoke [id number] MD Jada Dentonhalto (Adult Med) [address] [place] [address] 12/28/2023 09:44:20 01/02/2024 14:45:13 Benign essential hypertension 0099491 I10 stable -pt to continue amlodipine 5 mg daily Chronic ob structive pulmonary disease 96375326 J44.9 with asthma -pt to continue symbicort with spiriva Overweight 868367436 E66 .3 healthy diet and exercise discussed with pt Osteoporosis 67796964 M8 1.0 -pt stopped taking bisphospha joshua -declined to take itpt takes vit D /Ca containing foodpt is aware of weight bearing exercises Health Concerns Section Related Observation LastModified by Organization Detai ls LastModified Time None Recorded Concern Status LastModified by Organization Details LastModified Time None Recorded Advance Directives Directive Y: DNR Payers Encounter Date Sequence Insurance Name Policy Number Policy [place] Covered Member ID [place] Member ID Guarantor Name 02/23/2023 1 [employer] ([employer]) [id number] Hailey Pizarrowell [id number] Haileydrake Tompkins 06/27/2023 1 [employer]) [id number] Hailey J Turner [id number] Haileydrake Pizarrowell 10/02/2023 1 [employer] ([employer]) [id number] Hailey Lu Turner [id number] Haileydrake Pizarrowell 12/28/2023 1 [employer] (PPO) [id number] Haileydrake Pizarrowell [id number] Haileydrake Tompkins Notes Date Note Type Note Provider Name and Address Organization Details Recorded Time 3 text/html COPDReported bypatient.Onset/Timing:ch ronic Severity:moderate Context:cigarette smoking Associated Symptoms:no cough; no fever; no wheezingHypertension F/UReported bypatient.Associated Symptoms:no dizziness; no chest pain; no shortness of breath; no palpitations; no edema Lifestyle:regular exercise; limiting/avoiding salt Medications:taking medications as directed; no side effects from medication Kathy Alcaraz MD Attn: Accounting[address] [place], [place], [address] [place] [address] 02/23/2023 10:06:56 4 text/html COPDReported bypatient.Onset/Timing:ch ronic Severity:moderate Context:cigarette smoking Associated Symptoms:no cough; no fever; no wheezingHypertension F/UReported bypatient.Associated Symptoms:no dizziness; no chest pain; no shortness of breath; no palpitations; no edema Lifestyle:regular exercise; limiting/avoiding salt Medications:taking medications as directed; no side effects from medication Kathy Alcaraz MD Attn: Accounting[address] [place], [address] [place] [address] 06/27/2023 14:57:01 4 text/html COPDReported bypatient.Onset/Timing:ch ronic; chronic: slowly much worse Severity:moderate Context:cigarette smoking Aggravating factors:worse with cigarette smoking Associated Symptoms:no fever;decrease in exercise capacity;coughing up sputum;wheezing Kathy Alcaraz MD Attn: Accounting[address] [place], [address], [facility] 10/03/2023 13:51:23 text/html COPDReported bypatient.Onset/Timing:ch ronic Severity:moderate Context:cigarette smoking Associated Symptoms:no cough; no fever; no wheezingHypertension F/UReported bypatient.Associated Symptoms:no dizziness; no chest pain; no shortness of breath; no palpitations; no edema Lifestyle:regular exercise; limiting/avoiding salt Medications:taking medications as directed; no side effects from medication Kathy Alcaraz MD Attn: [employer]ing,[address] [place], [address], [facility] 12/28/2023 10:24:12 OBGyn Episode Ob Episode Information Episode Created Date Number of Fetuses Patient Bloodtype Patient rh Status Prepregnancy Weight lbs Domestic Partner Domestic Partner Phone Father Name Climate Change Risk Assessor Status 03/31/20 15 1 CLOSED Fetus Data First Name Last Name Admitted to NICU Weight (g) Sex Living Outcome Pediatric Complications Fetus ID Race Codes Race Delivery Type 3515.33 8 M Full Term [id number] Vaginal Cameron Calculation Initial Cameron Date Initial Exam Date Initial Exam Provider Initial Ultrasound Date Last Menstrual Period Date Ultra Sound Weeks Gestation 0 Eighteen To Twenty Week Cameron Update Ultra Sound Date Fundal Height At Umbil Quickening Date Ultra Sound Latest Weeks Gestation Final Cameron Confirmed By Final Cameron Confirmed Date Final Cameron Date Ultra Sound Latest Days Gestation 0 0 Menstrual History Last Menstrual Date Menses Monthly On Bcp Conception Prior Menses Frequency Hcg Plus Date Menarche Onset Age Delivery Information Delivery Date Delivery Type Labor Anesthesia Weeks Gestation Incision Type Labor Labor Length Hrs Delivered By Post Complications Tubal Sterilization Discharge Date Comments 7 Discharge Information Feeding Method Contraceptive Method Maternal HG B and HCT Levels Ob Episode Information Episode Created Date Number of Fetuses Patient Bloodtype Patient rh Status Prepregnancy Weight lbs Domestic Partner Domestic Partner Phone Father Name Climate Change Risk Assessor Status 03/31/20 15 1 CLOSED Fetus Data First Name Last Name Admitted to NICU Weight (g) Sex Living Outcome Pediatric Complications Fetus ID Race Codes Race Delivery Type 3572.03 7 F Full Term [id number] Vaginal Cameron Calculation Initial Cameron Date Initial Exam Date Initial Exam Provider Initial Ultrasound Date Last Menstrual Period Date Ultra Sound Weeks Gestation 0 Eighteen To Twenty Week Cameron Update Ultra Sound Date Fundal Height At Umbil Quickening Date Ultra Sound Latest Weeks Gestation Final Cameron Confirmed By Final Cameron Confirmed Date Final Cameron Date Ultra Sound Latest Days Gestation 0 0 Menstrual History Last Menstrual Date Menses Monthly On Bcp Conception Prior Menses Frequency Hcg Plus Date Menarche Onset Age Delivery Information Delivery Date Delivery Type Labor Anesthesia Weeks Gestation Incision Type Labor Labor Length Hrs Delivered By Post Complications Tubal Sterilization Discharge Date Comments 4 Discharge Information Feeding Method Contraceptive Method Maternal HG B and HCT Levels
== END 2024-07-22 08:33 | disposition home or self-care (01) ==
PROVIDERS: PCP Internal Medicine
DX: Z12.2 Encounter for screening for malignant neoplasm of respiratory organs (principal); R09.89 Other specified symptoms and signs involving the circulatory and respiratory systems; I65.23 Occlusion and stenosis of bilateral carotid arteries; E04.2 Nontoxic multinodular goiter; F17.210 Nicotine dependence, cigarettes, uncomplicated
CPT/HCPCS: 71271; 93880